=== PATIENT | male | born 1945 | race Caucasian/White ===

== ENCOUNTER → 2020-06-20 09:33 | Outpatient (BNVA) | payer MEDICARE, BC, SELFPAY | PROVIDERS: PCP Internal Medicine; Referring Provider Internal Medicine; Visit Provider Surgery | DX: C18.9 Malignant neoplasm of colon, unspecified (principal) | CPT/HCPCS: 99212 ==

== ENCOUNTER → 2020-10-31 13:27 | Outpatient (BNVA) | payer MEDICARE, BC, SELFPAY | PROVIDERS: PCP Internal Medicine; Visit Provider Urology | DX: R35.1 Nocturia (principal); N40.0 Benign prostatic hyperplasia without lower urinary tract symptoms | CPT/HCPCS: 51798; 81002; 99212 ==

== ENCOUNTER 2021-05-23 07:56 | Emergency (ER) | payer MEDICARE, BC, SELFPAY ==
--- NOTE | ~2021-05-23 | XR_ITS ---
EXAMINATION: XR HAND, LEFT CLINICAL INFORMATION: Left thumb laceration over distal phalanx COMPARISON: None TECHNIQUE: PA, lateral, and oblique views of the left hand. FINDINGS: No fracture or dislocation is seen. There is evidence of trauma to the soft tissues of the volar distal thumb. No soft tissue foreign body is seen. There is mild arthritis at the IP joints and first LONG-TERM joint. XR/XR hand LT 2V IMPRESSION: No fracture or dislocation seen. Evidence of trauma to the soft tissues over the volar distal thumb.
[2021-05-23 08:13] VITALS: BP 166/71; PULSE 86; RESP 18; TEMP 36.2; O2SAT 96; BMI 31.5
--- NOTE | 2021-05-23 09:27 | ED_ITS ---
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 Tetanus up-to-date. Denies injury to other area, numbness, tingling, weakness Related Data Home Medications Medication Instructions Recorded Confirmed aspirin 81 mg tablet,delayed 81 mg PO DAILY 06/20/20 06/20/20 release atorvastatin 10 mg tablet 10 mg PO DAILY 06/20/20 06/20/20 hydrochlorothiazide 25 mg tablet 25 mg PO DAILY 06/20/20 06/20/20 lisinopril 40 mg tablet mg PO 06/20/20 06/20/20 metformin 850 mg tablet 850 mg PO BID 06/20/20 06/20/20 omega-3 fatty acids-fish oil 360 1 cap PO BID 06/20/20 06/20/20 mg-1,200 mg capsule (Fish Oil) Previous Rx's Medication Instructions Recorded prednisone 20 mg tablet 60 mg PO DAILY #9 tab 03/21/21 bacitracin 500 unit/gram topical 1 appl TOPICAL BID #30 g 05/23/21 ointment cephalexin 500 mg capsule 500 mg PO QID 7 Days #28 cap 05/23/21 Allergies Allergy/AdvReac Type Severity Reaction Status Date / Time No Known Allergies Allergy Verified 03/21/21 15:39 [No Known Allergies*] Review of Systems Review of Systems: Constitutional: No Fever, No Chills ENT/Mouth: No Ear Pain, No Nasal Congestion, No sore throat, No Rhinorrhea, No Swallowing Difficulty Cardiovascular: No Chest Pain, No SOB Respiratory: No Cough Gastrointestinal: No Nausea, No Vomiting, No Abdominal pain Genitourinary:, No Dysuria, No Urgency, No Flank Pain Musculoskeletal: + joint pain, No Myalgias, No Joint Swelling Skin: + Skin Lesions, No rash Neuro: No Weakness, No Numbness, No Paresthesias Yes all other systems are reviewed and are negative [facility] Past Medical History Attestation statement: The following information was validated with the patient. Medical History (Updated 05/23/21 @ 10:13 by SONIDO Garrett) BPH (benign prostatic hyperplasia) Colon cancer Diabetes mellitus type 2 in nonobese Hypercholesterolemia Hypertension Surgical History History of colectomy (~10/24/04) History of colonoscopy History of excision of pilonidal cyst History of transurethral resection of prostate Family History Family History Father History of leukemia Mother History of emphysema Social History Social History Alcohol intake: never Advance Directives: No Physical Exam Vital Signs: Vital Signs: Last Vital Signs Temp 97.1 F 05/23/21 08:13 Pulse 86 05/23/21 08:13 Resp 18 05/23/21 08:13 BP 166/71 H 05/23/21 08:13 Pulse Ox 96 05/23/21 08:13 Body Mass Index 31.5 Const: General: cooperative, healthy appearing, alert and awake Orientation/consciousness: patient oriented x3 Limitations: no limitations HENMT: Head: Yes normal to inspection and Yes atraumatic Ears: hearing grossly normal bilaterally General nose exam: Normal external nose present Face and sinus: Yes normal facial exam Eyes: General: appearance normal, both eyes and all related structures EOM: EOMs intact bilaterally Neck: Neck: Yes normal visual inspection Resp: Effort & Inspection: normal respiratory effort and no respiratory distress Cardio: Rate: regular rate Peripheral pulses: radial pulses present Skin: Rashes: no rashes Neuro: General: patient oriented x3 Gait exam (Neuro): Normal gait present Extrem: Other: Please refer to image is above of left 1st digit, irregular deep avulsion/laceration, no nail involvement, neurovascular intact distally, full range of motion intact to digits, finger to thumb opposition intact, cap refill WNL, no visible bone Course Course Course Narrative: XR hand LT 2V IMPRESSION: No fracture or dislocation seen. Evidence of trauma to the soft tissues over the volar distal thumb. 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 On exam vital signs stable, NAD/nontoxic, physical exam as above, please refer to images. Concern for underlying fracture. Will closely approximate wound and have patient follow-up with orthopedics Medical Records Attestation: I reviewed the patient's medical records. Lab Data Attestation: I reviewed the patient's lab results. Procedures Laceration Laceration 1: Site: hand Side (If applicable): left (thumb) Size (cm): 3 Description: irregular Depth: involves muscle layer Local Anesthetic: lidocaine 1% (Digital block) Amount of anesthesia used (mL): 5 Pre-repair: wound explored and irrigated extensively Skin layer closed with: nylon Size (cm): 4-0 Number of sutures: 7 Discharge Plan Discharge Clinical Impression: Laceration, Avulsion of skin Patient Disposition: Home, Self-Care Instructions: Finger Laceration (ED), Skin Avulsion (ED) Additional Instructions: Please call the orthopedic hand specialist to make an appointment for next week. Keflex as an antibiotic, please take as prescribed Keep area dry and clean Need to have the sutures removed in 7-10 days If area begins look infected, is red, there is drainage, you have fever/chills please return to the ED Change dressing daily Apply bacitracin or Neosporin Prescriptions: New bacitracin 500 unit/gram ointment 1 appl topical BID Qty: 30 RF: 0 cephalexin 500 mg capsule 500 mg PO QID 7 Days Qty: 28 RF: 0 No Action prednisone 20 mg tablet 60 mg PO DAILY Qty: 9 RF: 0 lisinopril 40 mg tablet PO RF: 0 metformin 850 mg tablet 850 mg PO BID RF: 0 hydrochlorothiazide 25 mg tablet 25 mg PO DAILY RF: 0 atorvastatin 10 mg tablet 10 mg PO DAILY RF: 0 aspirin 81 mg tablet,delayed release (DR/EC) 81 mg PO DAILY RF: 0 omega-3 fatty acids-fish oil [Fish Oil] 360-1,200 mg capsule 1 cap PO BID RF: 0 Referrals: ED Physician,Generic [Physician] - 1 week (Return to any emergency department or urgent care in 7-10 days to have your stitches taken out) Natalie Smyth MD [Physician] - 5 days Interventions: ED Discharge Assessment Last Done: 05/23/21 10:36 Discharge Date/Time: 05/23/21 10:37
[2021-05-23] MEDS: Lidocaine HCl 1 % MPF 5 ML VIAL SUBCUT (09:31)
== END 2021-05-23 10:37 | disposition home or self-care (01) ==
PROVIDERS: Emergency Provider Emergency Medicine; PCP Internal Medicine
DX: S61.012A Laceration without foreign body of left thumb without damage to nail, initial encounter (principal); E11.9 Type 2 diabetes mellitus without complications; I10 Essential (primary) hypertension; W31.2XXA Contact with powered woodworking and forming machines, initial encounter; Y93.9 Activity, unspecified; Y92.9 Unspecified place or not applicable; Y99.9 Unspecified external cause status
CPT/HCPCS: 12002; 73120; 99283; 99284

== ENCOUNTER → 2021-05-30 08:59 | Outpatient (BNVA) | payer MEDICARE, BC, SELFPAY | PROVIDERS: Visit Provider Urology | DX: S61.012A Laceration without foreign body of left thumb without damage to nail, initial encounter (principal); N40.1 Benign prostatic hyperplasia with lower urinary tract symptoms; R35.1 Nocturia | CPT/HCPCS: 51798; 99202; 99212 ==

== ENCOUNTER → 2021-06-06 10:37 | Outpatient (BNVA) | payer MEDICARE, BC, SELFPAY | PROVIDERS: PCP Obstetrics & Gynecology; Visit Provider Physician Assistant | DX: S61.012D Laceration without foreign body of left thumb without damage to nail, subsequent encounter (principal) | CPT/HCPCS: 99212 ==

== ENCOUNTER → 2021-06-20 10:17 | Outpatient (BNVA) | payer MEDICARE, BC, SELFPAY | PROVIDERS: PCP Obstetrics & Gynecology; Visit Provider Physician Assistant | DX: T14.8XXD Other injury of unspecified body region, subsequent encounter (principal) | CPT/HCPCS: 99212 ==

== ENCOUNTER → 2021-06-21 14:49 | Outpatient (BNVA) | payer MEDICARE, BC, SELFPAY | PROVIDERS: PCP Obstetrics & Gynecology; Visit Provider Surgery | DX: C18.9 Malignant neoplasm of colon, unspecified (principal) | CPT/HCPCS: 99212 ==

== ENCOUNTER 2021-11-16 09:02 | Day surgery (SDC) | payer MEDICARE, BC, SELFPAY ==
[2021-11-12 15:56] VITALS: BMI 35.1
[2021-11-16 09:47] VITALS: BMI 32.3
[2021-11-16 10:07] VITALS: BP 150/77; PULSE 64; RESP 16; TEMP 36.8; O2SAT 97
[2021-11-16] MEDS: Lactated Ringers 1,000 ML 100 ML IVCONT (10:14)
--- NOTE | 2021-11-16 10:30 | P.CONAN_ITS ---
HPI - Anesthesia Eval Consult details Narrative: 76 yo male patient fo colonoscopy PMFSH Active Problems Active Problems: All Active Problems (Updated 05/24/21 @ 00:02 by Marcos Ivey) Lower thoracic back pain (Acute) Nocturia more than twice per night (Acute) Plant allergic contact dermatitis (Acute) BPH (benign prostatic hyperplasia) (Acute) Past Medical History Medical History BPH (benign prostatic hyperplasia) Colon cancer Diabetes mellitus type 2 in nonobese Hypercholesterolemia Hypertension Family History Family History Father History of leukemia Mother History of emphysema Family history of problems with anesthesia: No Surgical History Surgical History History of colectomy History of colonoscopy History of excision of pilonidal cyst History of placement of ear tubes History of transurethral resection of prostate History of Problems with Anesthesia: No Social History Social History Alcohol intake: never Patient Tobacco Use Status: Never used Tobacco Use of substances other than those prescribed or required for medical reasons: No Are you DNR?: Yes Advance Directives: No Advance Directives Information Provided: Yes Recently lost weight without trying: No How much weight loss: 2-13 pounds Nutrition Risks: No Nutritional Risk Current occupational status: retired Current occupation: rt handed Meds Allergies Allergy/AdvReac Type Severity Reaction Status Date / Time No Known Allergies Allergy Verified 11/12/21 15:53 [No Known Allergies*] Active Medications: Current Medications Sodium Biphosphate/Sodium Phosphate (Sodium Phosphate,Mccracken-Dibasic 133 Ml Enema) 133 ml UT ONCE PRN PRN Reason: Poor Colonoscopy Prep Results Home Medications Medication Instructions Recorded Confirmed Last Taken Type atorvastatin 10 mg tablet 10 mg PO DAILY 06/20/20 11/12/21 Unknown History hydrochlorothiazide 25 mg tablet 25 mg PO DAILY 06/20/20 11/12/21 Unknown History lisinopril 40 mg tablet 40 mg PO DAILY 06/20/20 11/12/21 11/16/21 History metformin 850 mg tablet 850 mg PO BID 06/20/20 11/12/21 Unknown History omega-3 fatty acids-fish oil 360 1 cap PO BID 06/20/20 11/12/21 Unknown History mg-1,200 mg capsule (Fish Oil) Exam Exam Date and Time: November 16, 2021 1030 Height,Weight and Vital Signs: Height 5 ft 10 in Weight 102.058 kg Last Vital Signs Temp 98.3 F 11/16/21 10:07 Pulse 64 11/16/21 10:07 Resp 16 11/16/21 10:07 BP 150/77 H 11/16/21 10:07 Pulse Ox 97 11/16/21 10:07 Pertinent Lab Results Pertinent Lab Results: Lab Results 11/16/21 Range/Units 10:35 POC Glucose 138 H (60-115) mg/dL Airway Mallampati Class: III TM Dist: >3cm Neck ROM: Full Denture: Upper Loose/Missing/Broken Teeth: No (2 caps bottom intact) Heart: RRR Lungs: CTAB Assessment and Plan Assessment Anesthesia Assessment: Anesthesia Plan Discussed and Chart Reviewed Final Anesthetic Review Family History of Problems with Anesthesia: No History of Problems with Anesthesia: No NPO: Yes ASA Class: II Final Preanesthetic Review: No Changes in Pt Med Stat, Meds/Allgs Chart Reviewed, Consent Obtained/Reviewed, Anes Risks/Benef Reviewed and DNR Form (If Appl.) Patient Risk: Low Procedure Risk: Low Assessment/Block/Sedation in SS: Assess/Block/Sedation-SS Anesthetic Plan Anesthetic Plan: MAC: Disposition: Standard PACU
[2021-11-16 10:39] LABS: Glucose, Whole Blood 138 mg/dL (60-115)
[2021-11-16 11:40] VITALS: BP 98/61; PULSE 57; RESP 20; TEMP 36.2; O2SAT 95
--- NOTE | 2021-11-16 11:42 | P.BOP_ITS ---
Brief Operative Note Date of Service: 11/16/21 Pre-op diagnosis: Screening Post-op diagnosis: other (Colon polyps) Procedure: Colonoscopy to the anastomosis and SI with hot snare polypectomy x 2 Surgeon: Gregory Murphy Anesthesia: MAC Was an Customs Entry Writer used for this Procedure?: No Estimated blood loss (mL): 0 Pathology: other (A. Polyp distal to the anastomosis B. Transverse colon polyp) Condition: stable Disposition: PACU
[2021-11-16 11:55] VITALS: BP 109/70; PULSE 56; RESP 20; TEMP 36.6; O2SAT 95
[2021-11-16 12:10] VITALS: BP 129/76; PULSE 56; RESP 18; TEMP 37.4; O2SAT 98
--- NOTE | 2021-11-16 23:47 | OP_ITS ---
SURGEON: Gregory Murphy MD INDICATIONS: The patient presents for followup of personal history of colon cancer and tubular adenomas of the colon. Full consent was obtained from him for this, including risks of bleeding and perforation. PREOPERATIVE DIAGNOSIS: POSTOPERATIVE DIAGNOSIS: PROCEDURE PERFORMED: Colonoscopy to the anastomosis and small bowel with hot snare polypectomy x 2. ESTIMATED BLOOD LOSS: COMPLICATIONS: ANESTHESIA: Monitored anesthesia care. ASSISTANTS: SPECIMENS: PREOPERATIVE DIAGNOSES: Colorectal cancer screening, personal history of tubular adenomas of the colon, and colorectal cancer screening. POSTOPERATIVE DIAGNOSES: Colorectal cancer screening, personal history of tubular adenomas of the colon, and colorectal cancer screening, colon polyps, diverticulosis, and internal hemorrhoids. DESCRIPTION OF PROCEDURE: The patient was placed in the left lateral decubitus position. The digital rectal exam revealed no abnormalities. The Olympus video pediatric colonoscope was entered into the rectum and advanced easily to the region of the anastomosis. This appeared normal. The small bowel was cannulated and appeared normal. The scope was withdrawn back in the colon. The entire anastomosis was well visualized and appeared normal. The scope was then slowly withdrawn assessing all mucosal surfaces carefully. Preparation was excellent. Just distal to the anastomosis was an approximately 1.2 cm polyp, which was removed by hot snare polypectomy. The polypectomy site appeared clean, without any sign of residual polyp nor bleeding. The polyp was retrieved on the tip of the scope and then withdrawn from the patient. The scope was then readvanced back to the polypectomy site, which appeared clean, without any sign of residual polyp nor bleeding. In the transverse colon was an approximately 6 mm polyp, which was removed by hot snare polypectomy and recovered by suction. The polypectomy site appeared clean, without any sign of residual polyp nor bleeding. I did not visualize any other polyps, colitis, nor angiodysplasia. There was [id number] amount of sigmoid diverticulosis. In the rectum, scope was retroflexed visualizing internal hemorrhoids, but no other pathology. The rectal mucosa appeared normal. Scope was straightened and withdrawn from the patient. He tolerated the procedure well and was returned to the recovery area in stable condition. IMPRESSION: 1. Colon polyps. 2. Diverticulosis. 3. Internal hemorrhoids. 4. Normal anastomosis. PLAN: The results of the pathology will be checked. He was advised not to use any aspirin or fish oil for 1 week. He was advised not to use any NSAIDs for 1 week. I would recommend a repeat colonoscopy in 3 years, although at that point, he would be in his early 80s and we would obviously need to take his clinical condition into account. MD HAI Carmona/ESTEE / [id number] MTDD
== END 2021-11-16 12:40 | disposition home or self-care (01) ==
PROVIDERS: PCP Internal Medicine; Visit Provider Internal Medicine
PROC: 0DJD8ZZ Inspection of Lower Intestinal Tract, Via Natural or Artificial Opening Endoscopic (ICD-10-PCS; CPT 45378; principal; 2021-11-16 10:00)
DX: Z12.11 Encounter for screening for malignant neoplasm of colon (principal); Z85.038 Personal history of other malignant neoplasm of large intestine; Z86.010 Personal history of colon polyps; Z83.71 Family history of colonic polyps; D12.3 Benign neoplasm of transverse colon; D12.0 Benign neoplasm of cecum; K57.30 Diverticulosis of large intestine without perforation or abscess without bleeding; K64.8 Other hemorrhoids; Z90.49 Acquired absence of other specified parts of digestive tract; I10 Essential (primary) hypertension; E78.00 Pure hypercholesterolemia, unspecified; N40.0 Benign prostatic hyperplasia without lower urinary tract symptoms; E11.9 Type 2 diabetes mellitus without complications; Z79.84 Long term (current) use of oral hypoglycemic drugs; Z79.899 Other long term (current) drug therapy
CPT/HCPCS: 45385; 82947; 88305

== ENCOUNTER → 2021-12-06 08:09 | Outpatient (BNVA) | payer MEDICARE, BC, SELFPAY | PROVIDERS: PCP Internal Medicine; Visit Provider Urology | DX: N40.0 Benign prostatic hyperplasia without lower urinary tract symptoms (principal); R35.1 Nocturia | CPT/HCPCS: 51798; 99212 ==

== ENCOUNTER → 2022-06-20 08:36 | Outpatient (BNVA) | payer MEDICARE, BC, SELFPAY | PROVIDERS: PCP Internal Medicine; Visit Provider Surgery | DX: C18.9 Malignant neoplasm of colon, unspecified (principal) | CPT/HCPCS: 99212 ==

== ENCOUNTER → 2022-12-06 08:30 | Outpatient (BNVA) | payer MEDICARE, BC, SELFPAY | PROVIDERS: PCP Internal Medicine; Visit Provider Urology | DX: N40.0 Benign prostatic hyperplasia without lower urinary tract symptoms (principal) | CPT/HCPCS: 51798; 99212 ==

== ENCOUNTER 2023-06-24 08:43 | Outpatient (AMB) | payer MEDICARE, BC, SELFPAY ==
--- NOTE | 2023-06-24 08:53 | MHC.OFFVIS ---
Intake Vital Signs 06/24/23 09:02 Height 5 ft 10 in Weight 223 lb 8 oz BMI 32.1 BP 138/64 Blood Pressure Location Lt brachial Position Sitting Pulse 79 Intake Visit Reasons: yearly visit malignant neoplasm of ascending colon Intake Note: Patient is seen in office for yearly visit, following malignant neoplasm of ascending colon. Patient c/o: denies any concerns or changes Price Accuracy Supervisor Required: No Accompanied by: Self / Same As Patient Allergies No Known Allergies [No Known Allergies*] Allergy (Verified 06/24/23 09:03) Medication List - Last Reconciled 06/24/23 by Mike Yancey MD atorvastatin 10 mg PO DAILY hydrochlorothiazide 25 mg PO DAILY ibuprofen 600 mg PO TID PRN lisinopril 40 mg PO DAILY metformin 850 mg PO BID omega-3 fatty acids-fish oil 360-1,200 mg (Fish Oil) 1 cap PO BID HPI HPI Comments History of Present Illness Details Mr. English returns for follow-up colon cancer examination. He previously underwent laparoscopic right colectomy [address] Gonzalez. 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 status post right colectomy laparoscopic on 10/24/2004.? His last colonoscopy performed by Dr. Murphy on 11/16/2021 revealed to benign polyps 1 just distal to the anastomosis and a 2nd in the transverse colon. Repeat colonoscopy in 3 years was recommended. He denies any current abdominal pain, nausea, vomiting, fever, chills, diarrhea, or rectal bleeding. His most recent CEA and PSA level performed [facility] remains normal. Denies any new symptoms. [facility] Medical History Colon cancer BPH (benign prostatic hyperplasia) Diabetes mellitus type 2 in nonobese Hypercholesterolemia Hypertension Surgical History History of placement of ear tubes History of colonoscopy History of colectomy History of transurethral resection of prostate History of excision of pilonidal cyst Family History Father History of leukemia Mother History of emphysema Social History Alcohol intake: never Patient Tobacco Use Status: Never used Tobacco Current occupational status: retired Current occupation: rt handed Review of Systems Const All systems reviewed & are unremarkable except as noted in HPI and below Denies chills, Denies fever(s), Denies headache(s) and Denies poor appetite ENT Denies dizziness and Denies headache(s) Card Denies chest pain, Denies rapid heart rate, Denies palpitations and Denies slow heart rate Resp Denies chest congestion, Denies cough, Denies pain on inspiration and Denies wheezing GI Denies abdominal pain, Denies bloating, Denies change in stool character, Denies constipation, Denies diarrhea, Denies nausea, Denies vomiting and Denies hematemesis Musc Denies back pain, Denies arthralgias, Denies joint swelling and Denies numbness Skin/Breast Denies change in pigmentation, Denies erythema and Denies rash Neuro Denies dizziness, Denies headache(s) and Denies numbness Psych Denies anxiety and Denies depression Endo Denies palpitations Chriss/Lymph Denies easy bleeding, Denies easy bruising and Denies lymphadenopathy Aller/Immun Denies wheezing Physical Exam Vital Signs: Last Vital Signs Pulse 79 06/24/23 09:02 BP 138/64 06/24/23 09:02 BMI result Body Mass Index 32.1 Const General: healthy appearing and well developed Nutritional Appearance: well nourished Orientation/consciousness: patient oriented x3 Limitations: no limitations HEENT Head: Yes normocephalic and Yes atraumatic Ears: hearing grossly normal bilaterally Resp Effort & Inspection: normal respiratory effort, no audible wheezes, no cough and no respiratory distress GI Inspection: Yes normal to inspection, No Abdominal wall edema, No distended and Yes incision (Clean and intact, no palpable mass) Palpation (GI): Soft to palpation, nontender, no guarding, not rigid and No hepatosplenomegaly present Percussion: Yes normal to percussion Rectal Exam - Male: Yes deferred Skin General skin exam: no rashes or lesions noted Neuro General: patient oriented x3 Extrem General: Yes no clubbing, cyanosis or edema Assessment & Plan Assessment & Plan (1) Colon cancer: Comment: Dr. Gonzalez: Laparoscopic right colectomy 10/24/2004 Code(s): C18.9 - Malignant neoplasm of colon, unspecified Qualifiers: Colon location: ascending Qualified Code(s): C18.2 - Malignant neoplasm of ascending colon Plan: Gregory returns for follow-up examination after right colon surgery 18 years ago. He continues to do well and has no evidence of recurrence disease. His abdomen is soft and nondistended with no palpable mass. He underwent colonoscopy in October [address] Murphy with finding of 2 benign polyps. He will possibly undergo a repeat colonoscopy in 3 years. CEA Levels remain normal. He will return in one year for follow-up examination, sooner p.r.n.. Coding Level of Care Code Est Pt Level 3 (80175) Diagnoses Malignant neoplasm of ascending colon C18.2 Colon location: ascending
[2023-06-24 09:02] VITALS: BP 138/64; PULSE 79; BMI 32.1
== END 2023-06-24 09:12 | disposition home or self-care (01) ==
PROVIDERS: Visit Provider Surgery
DX: Z85.038 Personal history of other malignant neoplasm of large intestine (principal); Z86.010 Personal history of colon polyps
CPT/HCPCS: 99213

== ENCOUNTER → 2023-06-24 08:43 | Outpatient (BNVA) | payer MEDICARE, BC, SELFPAY | PROVIDERS: Visit Provider Surgery | DX: C18.2 Malignant neoplasm of ascending colon (principal) | CPT/HCPCS: 99212 ==

== ENCOUNTER 2023-09-11 10:01 | Outpatient (AMB) | payer MEDICARE, BC, SELFPAY ==
[2023-09-11 10:47] VITALS: BP 140/68; PULSE 67; TEMP 36.4; O2SAT 97; BMI 32.7
--- NOTE | 2023-09-11 10:47 | MHC.OFFWIV ---
Intake Vital Signs 09/11/23 10:47 Height 5 ft 10 in Weight 228 lb BMI 32.7 BP 140/68 H Blood Pressure Location Lt brachial Position Sitting Pulse 67 Pulse Source Pulse Oximeter Temp 97.5 F Temp Source Temporal Artery Scan Pulse Oximetry (%) 97 Oxygen Delivery Method Room Air Intake Visit Reasons: EP Cough [phone] Intake Note: pt is here today for cough started 5 days ago Patient Tobacco Use Status: Never used Tobacco Allergies No Known Allergies [No Known Allergies*] Allergy (Verified 09/11/23 10:48) Do you need a note to return to daycare/school/sports/work: No HPI HPI Comments History of Present Illness Details 77 y/o male patient who presents to walk in clinic with c/o cough x 5 days. Reports cough is dry. Denies any fevers, chills, nausea or vomiting. Denies any recent sick contacts. [facility] Medical History Colon cancer BPH (benign prostatic hyperplasia) Diabetes mellitus type 2 in nonobese Hypercholesterolemia Hypertension Surgical History History of placement of ear tubes History of colonoscopy History of colectomy History of transurethral resection of prostate History of excision of pilonidal cyst Family History Father History of leukemia Mother History of emphysema Social History Alcohol intake: never Patient Tobacco Use Status: Never used Tobacco Current occupational status: retired Current occupation: rt handed Review of Systems Const All systems reviewed & are unremarkable except as noted in HPI and below Physical Exam Vital Signs: Last Vital Signs Temp 97.5 F 09/11/23 10:47 Pulse 67 09/11/23 10:47 BP 140/68 H 09/11/23 10:47 Pulse Ox 97 09/11/23 10:47 Oxygen Delivery Method Room Air 09/11/23 10:47 BMI result Body Mass Index 32.7 Const General: comfortable and no acute distress HEENT Head: Yes normocephalic Ears: external ears normal and TM abnormal with myringotomy tube present on the left General nose exam: Normal external nose present Face and sinus: Yes sinuses nontender Throat: Yes posterior oropharynx normal Resp Effort & Inspection: normal respiratory effort and able to speak in complete sentences Auscultation: clear to auscultation bilaterally Cardio Rate: regular rate Rhythm: regular rhythm Assessment & Plan Assessment & Plan (1) Cough in adult: Code(s): R05.9 - Cough, unspecified Plan: - OTC cough/cold remedies - Acetaminophen for pain relief. Medications: New dextromethorphan polistirex ER (Robitussin ER) 10 mL PO Q12H 89 mL 0RF R05.9 - Cough, unspecified benzonatate 100 mg PO TID 30 caps 0RF R05.9 - Cough, unspecified Coding Level of Care Code Est Pt Level 3 (02074) Diagnoses Cough in adult R05.9 Time Spent (min) 15
== END 2023-09-11 11:50 | disposition home or self-care (01) ==
PROVIDERS: PCP Internal Medicine; Visit Provider Nurse Practitioner Family
DX: R05.9 Cough, unspecified (principal)
CPT/HCPCS: 99213

== ENCOUNTER 2024-06-29 08:43 | Outpatient (AMB) | payer MEDICARE, BC, SELFPAY ==
--- NOTE | 2024-06-29 09:01 | A.OFFVIS_ITS ---
Vital Signs 06/29/24 09:10 Height 5 ft 10 in Weight 221 lb BMI 31.7 BP 135/63 Blood Pressure Location Rt brachial Position Sitting Pulse 73 Intake Visit Reasons: yearly malignant neoplasm colon follow up Intake Note: Patient is seen in office for yearly visit, following malignant neoplasm of ascending colon. Patient c/o: does not have any concerns Colonoscopy Due: 10/2024 (3 yrs recall) Hoop Maker Required: No Accompanied by: Self / Same As Patient Allergies No Known Allergies [No Known Allergies*] Allergy (Verified 06/29/24 09:09) Medication List - Last Reconciled 06/29/24 by Mike Yancey MD atorvastatin 10 mg PO DAILY benzonatate 100 mg PO TID dextromethorphan polistirex ER (Robitussin ER) 10 mL PO Q12H hydrochlorothiazide 25 mg PO DAILY ibuprofen 600 mg PO TID PRN lisinopril 40 mg PO DAILY metformin 1,000 mg PO BID omega-3 fatty acids-fish oil 360-1,200 mg (Fish Oil) 1 cap PO BID HPI Comments Details: Mr. Enlgish returns for follow-up colon cancer examination. He previously underwent laparoscopic right colectomy [address] Gonzalez. 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 status post right colectomy laparoscopic on 10/24/2004.? His last colonoscopy performed by Dr. Murphy on 11/16/2021 revealed to benign polyps 1 just distal to the anastomosis and a 2nd in the transverse colon. Repeat colonoscopy in 3 years was recommended. He denies any current abdominal pain, nausea, vomi ting, fever, chills, diarrhea, or rectal bleeding. His most recent CEA performed [facility] remains normal with CEA level is 1.72 (normal 0-5). Denies any new symptoms. He is planning a trip with his family to [place] in September 2024 [facility] Medical History Colon cancer BPH (benign prostatic hyperplasia) Diabetes mellitus type 2 in nonobese Hypercholesterolemia Hypertension Surgical History History of placement of ear tubes History of colonoscopy History of colectomy History of transurethral resection of prostate History of excision of pilonidal cyst Family History Father History of leukemia Mother History of emphysema Social History Alcohol intake: never Patient Tobacco Use Status: Never used Tobacco Current occupational status: retired Current occupation: rt handed Review of Systems Const All systems reviewed & are unremarkable except as noted in HPI and below Denies chills, Denies fever(s), Denies headache(s) and Denies poor appetite ENT Denies dizziness and Denies headache(s) Card Denies chest pain, Denies rapid heart rate, Denies palpitations and Denies slow heart rate Resp Denies chest congestion, Denies cough, Denies pain on inspiration and Denies wheezing GI Denies abdominal pain, Denies bloating, Denies change in stool character, Denies constipation, Denies diarrhea, Denies nausea, Denies vomiting and Denies hematemesis Musc Denies back pain, Denies arthralgias, Denies joint swelling and Denies numbness Skin/Breast Denies change in pigmentation, Denies erythema and Denies rash Neuro Denies dizziness, Denies headache(s) and Denies numbness Psych Denies anxiety and Denies depression Endo Denies palpitations Chriss/Lymph Denies easy bleeding, Denies easy bruising and Denies lymphadenopathy Aller/Immun Denies wheezing Physical Exam Vital Signs: Last Vital Signs Pulse 73 06/29/24 09:10 BP 135/63 06/29/24 09:10 BMI result Body Mass Index 31.7 Const General: healthy appearing and well developed Nutritional Appearance: well nourished Orientation/consciousness: patient oriented x3 Limitations: no limitations HEENT Head: Yes normocephalic and Yes atraumatic Ears: hearing grossly normal bilaterally Resp Effort & Inspection: normal respiratory effort, no audible wheezes, no cough and no respiratory distress GI Inspection: Yes normal to inspection, No Abdominal wall edema, No distended and Yes incision (Clean and intact, no palpable mass) Palpation (GI): Soft to palpation, nontender, no guarding, not rigid and No hepatosplenomegaly present Percussion: Yes normal to percussion Auscultation: normal bowel sounds Rectal Exam - Male: Yes deferred Skin General skin exam: no rashes or lesions noted Neuro General: patient oriented x3 Extrem General: Yes no clubbing, cyanosis or edema Assessment & Plan Assessment & Plan (1) Colon cancer: Comment: Dr. Gonzalez: Laparoscopic right colectomy 10/24/2004 Code(s): C18.9 - Malignant neoplasm of colon, unspecified Category: Medical Qualifiers: Colon location: ascending Qualified Code(s): C18.2 - Malignant neoplasm of ascending colon Plan: Gregory returns for follow-up examination after right colon surgery 18 years ago. He continues to do well and has no evidence of recurrence disease. His abdomen is soft and nondistended with no palpable mass. He underwent colonoscopy in October [address] Murphy with finding of 2 benign polyps. He will possibly undergo a repeat colonoscopy in 3 years. CEA Levels remain normal. He will return in one year for follow-up examination, sooner p.r.n.. Coding Level of Care Code Est Pt Level 3 (54361) Diagnoses Malignant neoplasm of ascending colon C18.2 Colon location: ascending
[2024-06-29 09:10] VITALS: BP 135/63; PULSE 73; BMI 31.7
== END 2024-06-29 09:23 | disposition home or self-care (01) ==
PROVIDERS: PCP Internal Medicine; Visit Provider Surgery
DX: C18.2 Malignant neoplasm of ascending colon (principal)
CPT/HCPCS: 99213

== ENCOUNTER → 2024-06-29 08:43 | Outpatient (BNVA) | payer MEDICARE, BC, SELFPAY | PROVIDERS: PCP Internal Medicine; Visit Provider Surgery | DX: C18.2 Malignant neoplasm of ascending colon (principal) | CPT/HCPCS: 99212 ==

== ENCOUNTER 2024-09-25 09:15 | Outpatient (AMB) | payer MEDICARE, BC, SELFPAY ==
--- OUTSIDE RECORDS SUMMARY | 2024-09-25 09:17 | XMS_ITS | Data Portability ---
Author Organization [place] - [facility], Allergy Address [address] [address] Care Team Providers Care Civil Project Engineer Name Role Phone NEHA SUERO Primary Care Provider Assessment Encounter Date Assessment Date Assessment LastModified by Organization Details LastModified Time 01/27/2024 01/27/2024 78-year-old male presents for cerumen removal. Cerumen removed bilaterally. T-tube remains in place and patent on the left. Persistent perforation on the right which is dry. Continue dry ear precautions and follow-up in 6 months for cerumen. [email or web address] Not available 01/27/2024 11:58:15 04/13/2024 04/13/2024 Recommendations: Follow up with referring provider. [email or web address] Not available 04/13/2024 08:40:49 04/13/2024 04/13/2024 The right tympanic membrane continues to show a small, tube sized perforation the anterior superior quadrant, no signs of otorrhea. The left external auditory canal free of inflammation or infection with patient T-tube in place. Audiometric testing was carried out today and compared to his last audiogram in 2020. This showed slight worsening in the hearing in the right ear as compared to his previous audiogram, but overall not enough to warrant amplification. Discussed some communication strategies that he can speak with his about regarding better communication at home. He should continue to maintain dry ear precautions permanently in the right ear, but water precautions are not needed for the left ear. At this point I have no plans to do anything about the small perforation on the right as it is probably more therapeutic than pathologic at this point. Follow-up in three months for ear cleaning as he does rapidly accumulated cerumen. He will see a PA for the three month visit and follow-up with me in six months. [email or web address] Not available 04/13/2024 09:00:45 07/30/2024 07/30/2024 78-year-old male presents for cerumen removal. Cerumen removed bilaterally. T-tube remains in place and patent on the left. Persistent perforation on the right which is dry. Continue dry ear precautions and follow-up in 6 months for cerumen. [email or web address] Not available 07/30/2024 09:20:21 Plan of Treatment Reminders Order Date Submit Date Provider Last Modified By Organization Details Last Modified Time Details Appointments Establish ed 15 2024 08:45A M ABBEY WINTERS MD Not available Not available Not available Establish ed 15 2024 09:00A M JIMMY FIGUEROA PA-C Not available Not available Not available Lab None recorded. Referral None recorded. Procedures None recorded. Surgeries None recorded. Imaging None recorded. Medication Orders None recorded. Patient TargetsNo targets recorded. Patient InstructionsNo instructions recorded. Reason for Referral None Reported. Results Created Date Observation Date Name Description Value Unit Range Abnormal Flag Note LastModifiedBy Organization Detail LastModifiedTime 03/10/20 24 08/04/2020 imagi ng/di agnos tic resul t No observ ation record ed. [email or web address] Not Available 21:16:55 03/10/2009/27/2020 imagi ng/di agnos tic resul t No observ ation record ed. [email or web address] Not Available 21:17:12 03/10/20 24 08/04/2020 audio gram No observ ation record ed. [email or web address] Not Available 21:18:20 03/10/20 24 09/27/2020 audio gram No observ ation record ed. [email or web address] Not Available 21:19:33 04/13/20 audio gram No observ ation record ed. [email or web address] Not Available 11:26:07 Result Notes None recorded. Problems Name Problem SNOMED Code Status Onset Date Resolution Date Notes Provider Name and Address Organization Details Recorded Time Impacted cerumen of bilatera l ears 83892293641 68980 Active 2023 JIMMY FIGUEROA PA-C [address], [place], [place], [address] , [place] - [facility] 4 11:58:29 Bilatera l disorder of Eustachi an tubes 74798993773 04368 Active 2023 JIMMY FIGUEROA PA-C [address], [place], [place], [address] , [place] - [facility] 4 11:58:33 Perforat ion of tympanic membrane 78881480 Active 2023 JIMMY FIGUEROA PA-C [address], [place], [place], [address] , [facility] - [facility] 4 11:59:00 Mixed conducti ve and sensorin eural hearing loss of right ear 15672512676 105 Active 2020 Mixed conducti ve and sensorin eural hearing loss, unilater al, right ear with restrict ed hearing on the contrala teral side; Note: Date Diagnose d: 1 10:09 AM (H90.A31 ) Not Available [facility] [place] 4 02:41:59 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 Other specifie d superfic ial mycoses; Note: Date Diagnose d: 2 9:04 AM (B36.8) Not Available [facility] 4 02:41:59 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 50274450834 109 Active 2020 Sensorin eural hearing loss, unilater al, left ear, with restrict ed hearing on the contrala teral side; Note: Date Diagnose d: 1 10:09 AM (H90.A22 ) Not Available [facility] [place] 4 02:42:00 Bilatera l chronic serous otitis 624491395 Completed 201602/20/2024 Chronic serous otitis media, bilatera l; Note: Date Diagnose d: 05/08/20 17 8:59 AM (H65.23) Not Available [facility] 4 02:42:02 Otorrhea of left ear 29131423890 91906 Completed 202102/20/2024 Otorrhea , left ear; Note: Date Diagnose d: 2 9:04 AM (H92.12) Not Available [facility] 4 02:42:03 Impacted cerumen in left ear 81868987225 32519 Active 2016 Impacted cerumen, left ear; Note: Date Diagnose d: 7 4:32 PM (H61.22) Not Available [facility] [place] 4 02:42:03 Impacted cerumen in right ear 10025100064 37899 Active 2017 Impacted cerumen, right ear; Note: Date Diagnose d: 8 8:52 AM (H61.21) Not Available [facility] 4 02:42:04 Sensorin eural hearing loss of bilatera l ears 860484242 Active 2020 Sensorin eural hearing loss, bilatera l; Note: Date Diagnose d: 1 2:59 PM (H90.3) Not Available [facility] 4 02:42:06 Marginal perforat ion of tympanic membrane 85672416 Active 2021 Other marginal perforat ions of tympanic membrane , right ear; Note: Date Diagnose d: 2 8:54 AM (H72.2X1 ) Not Available [facility] 4 02:42:08 Mass of neck 817920107 Active 2016 Localize d swelling , mass and lump, neck; Note: Date Diagnose d: 06/04/20 17 10:03 AM (R22.1) Not Available [facility] [place] 4 02:42:08 Neck swelling 266736176 Active 2016 Localize d swelling , mass and lump, neck; Note: Date Diagnose d: 06/04/20 17 10:03 AM (R22.1) Not Available [facility] [place] 4 02:42:08 Mixed conducti ve and sensorin eural hearing loss, bilatera l 293659394 Active 2016 Mixed conducti ve and sensorin eural hearing loss, bilatera l; Note: Date Diagnose d: 7 4:16 PM (H90.6) Not Available [facility] 4 02:42:09 Chronic serous otitis media of left ear 696737553 Active 2017 Chronic serous otitis media, left ear; Note: Date Diagnose d: 8 9:03 AM (H65.22) Not Available [facility] 4 02:42:10 Chronic serous otitis media of right ear 604081585 Active 2020 Chronic serous otitis media, right ear; Note: Date Diagnose d: 08/22/2020 9:08 AM (H65.21) Not Available [facility] 4 02:42:10 Problem Notes None recorded. Procedures Surgical History Date Name Laterality Status Provider Name and Address Organization Details Recorded Time 5 Cerumen removal without microscope bilat completed JIMMY FIGUEROA PA-C [address] [place] [address], [phone], [facility] - [facility] 07/30/2024 09:19:48 4 Comp Audio with Tymps (69960 & 60080) completed RICKI CAVAZOS [address] [place] [address], [address], [facility] - [facility] 04/13/2024 08:41:06 4 Cerumen removal with microscope bilateral completed ABBEY WINTERS MD [address] [place] [address], [phone], [facility] - [facility] 04/13/2024 08:28:55 4 Cerumen removal without microscope bilat completed JIMMY FIGUEROA PA-C [address] [place] [address], [address], [facility] - [facility] 01/27/2024 11:57:55 Imaging Results Imaging Date Name Status LastModified by [facility] Details LastModified Time 08/04/2020 imaging/diagno stic result completed Information not available 03/10/2024 21:16:55 09/27/2020 imaging/diagno stic result completed Information not available 03/10/2024 21:17:12 08/04/2020 audiogram completed Information not available 03/10/2024 21:18:20 09/27/2020 audiogram completed Information not available 03/10/2024 21:19:33 04/13/2024 audiogram completed [facility] Information not available 04/13/2024 11:26:07 Procedure Notes None recorded. Medical Equipment None Reported. Medications Name Sig Start Date Stop Date Status Note LastModified by Organization Details LastModified Time celecoxib 200 mg capsule 08/02 completed Medicati on ID: [id number] D uration Value: 90 Brand Name: celecoxi b Send Method: E-Prescr ibed Sub s Allowed: subs OK Medic ationGen ericName : celecoxi b Not Available Not Available Not Available metformin 500 mg tablet 04/24 completed Medicati on ID: [id number] B rand Name: metformi n Send Method: E-Prescr ibed Sub s Allowed: subs OK Medic ationGen ericName : metformi n Not Available Not Available Not Available atorvasta tin 10 mg tablet active Not Available Not Available Not Available metformin 850 mg tablet 04/13 completed Not Available Not Available Not Available metronida zole 500 mg tablet 08/02 completed Medicati on ID: [id number] D uration Value: 7 Brand Name: metronid azole Se nd Method: E-Prescr ibed Sub s Allowed: subs OK Medic ationGen ericName : metronid azole Not Available Not Available Not Available Ciloxan 0.3 % eye drops 04/13 completed Medicati on ID: [id number] D uration Value: 14 Prescri bed By Name: TUCKER [place] nd Name: Ciloxan Send Method: E-Prescr ibed Sub s Allowed: subs OK Speci al Instruct ion: Instill 4 drops twice a day into the affected ear Medi cationGe nericNam e: Ciloxan Not Available Not Available Not Available ciproflox acin 500 mg tablet 11/05 completed Medicati on ID: [id number] D uration Value: 7 Brand Name: ciproflo xacin HCl Send Method: E-Prescr ibed Sub s Allowed: subs OK Medic ationGen ericName : ciproflo xacin HCl Not Available Not Available Not Available ofloxacin 0.3 % ear drops 4 drop 04/24 completed Medicati on ID: [id number] P rescribe d By Name: Quita Pinon nd Name: ofloxaci n Send Method: E-Prescr ibed Sub s Allowed: subs OK Medic ationGen ericName : ofloxaci n Not Available Not Available Not Available tamsulosi n 0.4 mg capsule 2021 active Medicati on ID: [id number] B rand Name: tamsulos in Send Method: E-Prescr ibed Sub s Allowed: subs OK Medic ationGen ericName : tamsulos in Not Available Not Available Not Available metformin 1,000 mg tablet active Not Available Not Available Not Available clotrimaz ole-betam ethasone 1 %-0.05 % topical cream Apply 1 a small amount twice a day 04/13 completed Medicati on ID: [id number] D uration Value: 14 Brand Name: clotrima zole-bet amethaso ne Send Method: E-Prescr ibed Sub s Allowed: subs OK Speci al Instruct ion: Apply with fingerti p to external ear TID X 2 week and as needed M edicatio nGeneric Name: clotrima zole-bet amethaso ne Not Available Not Available Not Available clotrimaz ole 1 % topical solution 08/06 completed Medicati on ID: [id number] D uration Value: 14 Prescri bed By Name: Quita Pinon nd Name: clotrima zolzohaib Crocker d Method: E-Prescr ibed Sub s Allowed: subs OK Speci al Instruct ion: 4 drops to affected ear three times a day X 14 days Med icationG enericNa me: clotrima zole Not Available Not Available Not Available hydrochlo rothiazid e 25 mg tablet active Not Available Not Available Not Available Aspir-81 mg tablet,de layed release 04/13 completed Medicati on ID: [id number] B rand Name: Aspir-81 Send Method: E-Prescr ibed Sub s Allowed: subs OK Medic ationGen ericName : Aspir-81 Not Available Not Available Not Available ibuprofen 600 mg tablet active Not Available Not Available Not Available lisinopri l 40 mg tablet active Not Available Not Available Not Available Ciprodex 0.3 %-0.1 % ear drops,carlos pension Instill 4 drop twice a day as directed 04/13 completed Medicati on ID: [id number] D uration Value: 14 Brand Name: Ciprodex Send Method: E-Prescr ibed Sub s Allowed: subs OK Speci al Instruct ion: x 14 days Med icationG enericNa me: Ciprodex Not Available Not Available Not Available fish oil-dha-e pa 1,200 mg-144 mg-216 mg capsule 2016 active Medicati on ID: [id number] B rand Name: fish oil-dha- epa Send Method: E-Prescr ibed Sub s Allowed: subs OK Medic ationGen ericName : fish oil-dha- epa Not Available Not Available Not Available Gemtesa 75 mg tablet active Not Available Not Available Not Available Vitals Date Recorded Body height Body mass index (BMI) Body weight Provider Name and Address Organization Details Last Updated DateTime 01/27/2024 177.8 cm 30.8 kg/m2 61610.36 g Citlaly Crawley [place] [facility] 01/27/2024 11:07:41 Date Recorded Body height Body weight Provider Name and Address Organization Details Last Updated DateTime 04/13/2024 177.8 cm 28433.36 g Adina Zepeda [place] [facility] 04/13/2024 08:16:29 Date Recorded Body height Body mass index (BMI) Body weight Provider Name and Address Organization Details Last Updated DateTime 07/30/2024 177.8 cm 30.8 kg/m2 92081.36 g Gillian Denis [place] [facility] 07/30/2024 08:50:05 Social History None recorded. Functional Status None recorded. Mental Status None recorded. Family History Nothing Reported. Medical History Condition Response Diabetes Y Cancer Y Hypertension Y High Cholesterol Y Past Encounters Encounter ID Performer Location Encounter Start Date Encounter Closed Date Diagnosis/Indication Diagnosis SNOMED-CT Code Diagnosis ICD10 Code Diagnosis Note [id number] ABBEY WINTERS MD [facility] [address] [place] [place] [address] 01/27/2024 11:00:59 01/27/2024 11:26:38 Perforation of tympanic membrane 88537968 H72.01 Impacted c erumen of bilateral ears 7244067716 955123 H61.23 Bilateral disorder of Eustachian tubes 2791615926 256813 H69.93 [id number] ABBEY WINTERS MD [facility] [address] [place] [address] 04/13/2024 08:11:43 04/13/2024 09:02:17 Bilateral disorder of Eustachian tubes 1134256816 615423 H69.93 Perforatio n of tympanic membrane 49821064 H72.01 Impacted c erumen of bilateral ears 4684489601 932508 H61.23 Sensorineu ral hearing loss of bilateral ears 271109442 H90.3 Audiologic al evaluation results:Ri ght ear:{{Norm al sloping Mi ld* Modera te Moderat david-severe Severe Pr ofound Nor mal auditory thresholds }} to {{mild mod erate mode rately-sev ere* sever e profound with}} {{sensorin eural hearing loss with* cond uctive hearing loss with mixed hearing loss with}} {{excellen t* good fa ir poor no t measurable }} word recognitio n. Conductive componenet at 4kHz only.Left ear:{{Norm al sloping* M ild Modera te Moderat david-severe Severe Pr ofound Nor mal auditory thresholds }} to {{mild mod erate mode rately-sev ere* sever e profound with}} {{sensorin eural hearing loss with* cond uctive hearing loss with mixed hearing loss with}} {{excellen t* good fa ir poor no t measurable }} word recognitio n.Tympanom etry:Right Ear:{{Type A* Type As Type Ad Type C Type C, shallow & rounded Ty pe B Type B with large volume Cou ld not maintain a hermetic seal}}Left Ear:{{Type A Type As Type Ad* Type C Type C, shallow & rounded Ty pe B Type B with large volume Cou ld not maintain a hermetic seal}} [id number] RICKI CAVAZOS [facility] [address] [address] 04/13/2024 08:40:31 04/14/2024 07:37:33 Sensorineural hearing loss of bilateral ears 658613945 H90.3 [facility]Norm al sloping Mi ld* Modera te Moderat david-severe Severe Pr ofound Nor mal auditory thresholds }} to {{mild mod erate mode rately-sev ere* sever e profound with}} {{sensorin eural hearing loss with* cond uctive hearing loss with mixed hearing loss with}} {{excellen t* good fa ir poor no t measurable }} word recognitio n. Conductive componenet at 4kHz only.Left ear:{{Norm al sloping* M ild Modera te Moderat david-severe Severe Pr ofound Nor mal auditory thresholds }} to {{mild mod erate mode rately-sev ere* sever e profound with}} {{sensorin eural hearing loss with* cond uctive hearing loss with mixed hearing loss with}} {{excellen t* good fa ir poor no t measurable }} word recognitio n.Tympanom etry:Right Ear:{{Type A* Type As Type Ad Type C Type C, shallow & rounded Ty pe B Type B with large volume Cou ld not maintain a hermetic seal}}Left Ear:{{Type A Type As Type Ad* Type C Type C, shallow & rounded Ty pe B Type B with large volume Cou ld not maintain a hermetic seal}} [id number] DEVENDRA HENNESSY MD [facility] [address] [address] 07/30/2024 08:34:03 07/30/2024 09:15:39 Bilateral disorder of Eustachian tubes 2708097775 563665 H69.93 Impacted c erumen of bilateral ears 7813185876 943924 H61.23 Health Concerns Section Related Observation LastModified by Organization Detai ls LastModified Time None Recorded Concern Status LastModified by Organization Details LastModified Time None Recorded Advance Directives Directive None Recorded Payers Encounter Date Sequence Insurance Name Policy Number Policy Marin Covered Member ID Marin Member ID Guarantor Name 01/27/2024 1 [place]ARE [place]: [facility] Gregory English [id number] Gregory [employer] [facility] 01/27/2024 2 [place] [employer] 111 Gregory English [id number] Gregory [facility] 04/13/2024 1 [place] [facility] Gregory Downeyuin [id number] [facility] 04/13/2024 2 [place] 111 Gregory English [id number] Gregory [facility] 04/13/2024 1 [place] [facility] Gregory English [id number] [facility] 04/13/2024 2 [place] 111 Gregory English [id number] Gregory [facility] 07/30/2024 1 [place] [facility] Gregory Enlgish [id number] Gregory [facility] 07/30/2024 2 [place] [employer] 111 Gregory English [id number] Gregory English Notes Date Note Type Note Provider Name and Address Organization Details Recorded Time 01/27/2024 text/html 78-year-old male presents for cerumen removal. No acute issues since his last visit. History of chronic right TM perforation following T-tube. ABBEY WINTERS MD [address] [place] [address], [phone], [facility] 01/27/2024 14:00:50 04/13/2024 text/html 78-year-old male presents for cerumen removal. History of chronic ETD s/p BMT x 2 now statuspost bilateral dilation of the eustachian tubes and right M&T on 08/30/20. The right tube had extruded leaving a small residual perforation in the drum. He is noted no pressure or blockage sensation in the right ear since his last visit. He still has a T-tube in the left ear. No recent pain or discharge. He is due for updated audiometric testing today. He notes that the hearing in the right ear seems worse than the left recently. ABBEY WINTERS MD [address] [facility],[address], [address], [facility] - [facility] 04/13/2024 09:01:14 04/13/2024 text/html Audiological Evaluation HPIReported bypatient.Hearing loss perceived:hearing loss in both ears: right ear worse Onset:gradual RICKI CAVAZOS [address] [facility],[place] [address], [place], [address], [facility] - [facility] 04/13/2024 08:46:32 07/30/2024 text/html 78-year-old male presents for cerumen removal. No acute issues since his last visit. History of chronic right TM perforation following T-tube. DEVENDRA WOOD MD [address] [facility],[place] [address], [place], [address], [facility] - [facility] 07/30/2024 13:01:11
--- OUTSIDE RECORDS SUMMARY | 2024-09-25 09:17 | XMS_ITS | Patient Health Record ---
Author Organization [facility] Address [address] [place] [address] Care Team Providers Care Insight Director Name Role Phone Soren MONTANO, Oniel Primary Care Provider Unavailab Will Drake Unavailable [phone] Allergies No Known Allergies Reason For Referral No Information Medications Medication SIG (Take, Route, Frequency, Duration) Notes Start Date End Date Status Fish Oil 1200 MG 1 capsule Orally Onc e a day Active metFORMIN HCl 850 MG 1 tablet with a chris l Orally Twice a day Active hydroCHLOROthiazide 25 MG 1 tablet Orall y Once a day Active Atorvastatin Calcium 10 MG 1 tablet Oral ly Once a day Active Lisinopril 40 MG 1 tablet Orally twic e a day Active Immunizations Vaccine Route Administration Date Status Comme nts Flu vaccine no Preserv 3 and > Unknown 04/13/2014 Admin istered Influenza Unknown 05/26/2018 Administered Influenza Unknown 03/22/2021 Administered Problems Problem Type SNOMED Code ICD Code Onset Dates Problem Status W/U Status Risk Notes Problem 9657878 Diverticulitis o f large intestine without perforation or abscess without bleeding (K57.32) Active confirmed Problem 151946651 Encounter for screening for malignant neoplasm of colon (Z12.11) Active confirmed Problem 873478515 History of adenomatous polyp of colon (Z86.010) Active confirmed Problem History of malignant neoplasm of colon (685603869) History of colon cancer (Z85.038) Active confirmed Problem 203143616 Personal history of colon cancer (Z85.038) Active confirmed Problem Diverticulosis of colon (503169018) Diverticulosis of colon (K57.30) Active confirmed Problem History of gastrointestinal tract bypass (375122518) Hx of Billroth II operation (Z98.0) Active confirmed Plan Of Treatment Pending Test Test Name Order Date Pathology 11/16/2021 Future Test Test Name Order Date COLONOSCOPY 12/27/2014 COLONOSCOPY 05/26/2018 COLONOSCOPY 10/12/2021 Insurance Providers Payer Name Payer Address Payer Phone Subscriber Number Group Number Insured Name Patient Relationship to Insured Coverage Start Date Coverage End Date MEDICARE OF [place] [address] [place] [address] [phone] [id number] WILL ENGLISH Self - patient is the insured [facility] [address] [place], [place] [id number] AFR[place] WILL Self - patient is the insured Medical (General) History Medical History History ICD Code Hx of colon cancer-10/2004-right colectom y by Dr. Gonzalez Colon polyps-tubular adenoma s-colonoscopy in December of 2011--this was negative for any recurrent polyps--it did reveal his known diverticulosis and internal hemorrhoids; colonoscopy in February of 2015-one small tubular adenoma removed HTN NIDDM Hyperlipidemia Denies LA,CVA,Lung disease,renal disease Diverticulitis in the left c olon in 11/2014--treated with outpt antibiotics--he has had other episodes of diverticulitis including 2 in 2018, most recently as of February 2018--is followed by Dr. Yancey as well Tubes in ears- Dr. Marie Negative colonoscopy in 06/2018 Surgical History Surgery Date(Month/Year) Colon cancer surgery--right colectomy 20 05 Pilonidal cyst X 3 Prostate surgeries Ear tubes
[2024-09-25 09:25] VITALS: BP 150/82; PULSE 66; TEMP 36.7; O2SAT 96; BMI 30.4
--- NOTE | 2024-09-25 09:25 | AM.OFFWIN_ITS ---
Intake Vital Signs 09/25/24 09:25 Height 5 ft 10 in Weight 212 lb BMI 30.4 BP 150/82 H Blood Pressure Location Lt brachial Position Sitting Pulse 66 Pulse Source Pulse Oximeter Temp 98.1 F Temp Source Oral Pulse Oximetry (%) 96 Oxygen Delivery Method Room Air Intake Visit Reasons: EP-Cough Patient Tobacco Use Status: Never used Tobacco Allergies No Known Allergies [No Known Allergies*] Allergy (Verified 09/25/24 09:25) HPI HPI Comments History of Present Illness Details This is an 78-year-old male who presented to the walk-in clinic today requesting ?clearance? as he is traveling soon with his family. Patient states he developed a cough about 3 weeks ago. He states this cough was productive of occasionally clear and occasionally green-yellow sputum. He states it was not associated with any other symptoms such as nasal congestion, rhinorrhea, fevers, chills, or shortness of breath. He started taking vblz-bxv-vtvlvuo dextrometho rphan for the past 10 days and he states that this has significantly helped his cough. He states his cough is essentially resolved at this time. He continues to deny any other symptoms such as congestion, rhinorrhea, fevers, chills, shortness of breath, chest pain, abdominal pain, nausea/vomiting/diarrhea, or ear pain. FOR[facility]LY [facility] Medical History Colon cancer BPH (benign prostatic hyperplasia) Diabetes mellitus type 2 in nonobese Hypercholesterolemia Hypertension Surgical History History of placement of ear tubes History of colonoscopy History of colectomy History of transurethral resection of prostate History of excision of pilonidal cyst Family History Father History of leukemia Mother History of emphysema Social History Alcohol intake: never Patient Tobacco Use Status: Never used Tobacco Current occupational status: retired Current occupation: rt handed Review of Systems Const All systems reviewed & are unremarkable except as noted in HPI and below Reports no additional complaints Eyes Reports no additional complaints ENT Reports no additional complaints Card Reports no additional complaints Resp Reports no additional complaints GI Reports no additional complaints Reports no additional complaints Musc Reports no additional complaints Skin/Breast Reports system reviewed and no additional complaints, except as documented Neuro Reports no additional complaints Psych Reports no additional complaints Endo Reports no additional complaints Chriss/Lymph Reports no additional complaints Aller/Immun Reports no additional complaints Physical Exam Vital Signs: Last Vital Signs Temp 98.1 F 09/25/24 09:25 Pulse 66 09/25/24 09:25 BP 150/82 H 09/25/24 09:25 Pulse Ox 96 09/25/24 09:25 Oxygen Delivery Method Room Air 09/25/24 09:25 BMI result Body Mass Index 30.4 Const Other: Vital signs reviewed. Constitutional: Non-toxic appearing. No acute distress. Well-developed and well-nourished. HEENT: Normocephalic and atraumatic. There is some cerumen in bilateral external auditory canals but tympanic membranes without erythema, edema, or bulg ing bilaterally and external auditory canals without erythema or edema bilaterally. Moist mucous membranes. No pharyngeal erythema or exudates. Skin: Warm and dry. No rashes or lesions noted. Neck: Full and painless range of motion. No cervical lymphadenopathy. Cardio: Regular rate and rhythm. No murmurs, gallops, or rubs. No lower extremity edema. No JVD. Pulmonary: No respiratory distress. No accessory muscle usage. Clear to auscultation bilaterally without wheezing, crackles, or rhonchi. Gastrointestinal: Soft, nontender, and nondistended in all 4 quadrants. Musculoskeletal: Normal range of motion in joints throughout the body. No de formity or other signs of injury. Neuro: Alert and oriented x4. Cranial nerves 2-12 grossly intact. No focal deficits appreciated. Psych: Normal mood and affect. Assessment & Plan Assessment & Plan (1) Cough: Code(s): R05.9 - Cough, unspecified Qualifiers: Cough type: other Qualified Code(s): R05.8 - Other specified cough Plan: This is an 78-year-old male who presented to the walk-in clinic requesting clearance in order to travel with his family. He states he developed a cough about 3 weeks ago, which was productive of occasionally clear and occasionally green-yellow sputum. He states he started taking ufar-otx-ghuzvcb cough suppressants about 10 days ago and his cough has essentially resolved at this time. He denies any other associated symptoms such as congestion, rhinorrhea, fever/chills, chest pain, or shortness of breath. On physical examination, his lungs are clear to auscultation bilaterally without crackles, rhonchi, or wheezing. Given that patient's symptoms have resolved it has been greater than 10 days, patient is no longer contagious of any viral illness and he was advised that he can travel with his family without restrictions. Patient encouraged to follow-up here if he were to develop persistent or recurrent symptoms. Patient verbalizes understanding and he is in agreement with the plan. Coding Level of Care Code Est Pt Level 3 (67684) Diagnoses Other cough R05.8 Cough type: other
== END 2024-09-25 10:07 | disposition home or self-care (01) ==
LOC: HO.HMCWIC 09:15
PROVIDERS: PCP Internal Medicine; Visit Provider Physician Assistant Medical
DX: R05.8 Other specified cough (principal)

== ENCOUNTER → 2024-09-25 09:15 | Outpatient (BNVA) | payer MEDICARE, BC, SELFPAY | PROVIDERS: PCP Internal Medicine; Visit Provider Physician Assistant Medical | DX: R05.8 Other specified cough (principal) | CPT/HCPCS: 99212 ==

== ENCOUNTER 2025-02-07 06:16 | Day surgery (SDC) | payer MEDICARE, BC, SELFPAY ==
--- OUTSIDE RECORDS SUMMARY | 2024-12-29 16:39 | XMS_ITS | Data Portability ---
Author Organization [place] - [facility], Allergy Address [address] [address] Care Team Providers Care Biometrics Instructor Name Role Phone NEHA SUERO Primary Care Provider Assessment Encounter Date Assessment Date Assessment LastModified by Organization Details LastModified Time 01/27/2024 01/27/2024 78-year-old male presents for cerumen removal. Cerumen removed bilaterally. T-tube remains in place and patent on the left. Persistent perforation on the right which is dry. Continue dry ear precautions and follow-up in 6 months for cerumen. [email or web address] Not available 01/27/2024 11:58:15 04/13/2024 04/13/2024 Recommendations: [...] and follow-up with me in six months. [email or web address] Not available 04/13/2024 09:00:45 07/30/2024 07/30/2024 78-year-old male presents for cerumen removal. Cerumen removed bilaterally. T-tube remains in place and patent on the left. Persistent perforation on the right which is dry. Continue dry ear precautions and follow-up in 6 months for cerumen. Not available 07/30/2024 09:20:21 10/07/2024 10/07/2024 The right tympanic membrane continues to show a small, tube sized perforation the anterior superior quadrant, no signs of otorrhea. The left external auditory canal free of inflammation or infection with patient T-tube in place. He should continue to maintain dry ear [...] does rapidly accumulated cerumen. He will see Jimmy for the three month visit and follow-up with me in six months. Patient will be getting a new Doc's Pro Plug for water exposure today. [email or web address] Not available 10/07/2024 09:00:29 Plan of Treatment Reminders Order Date Submit Date Provider Last Modified By Organization Details Last Modified Time Details Appointments Establish ed 15 2024 09:00A M JIMMY FIGUEROA PA-C Not available Not available Not available Establish ed 15 2024 08:45A M ABBEY WINTERS MD Not available Not available Not available Lab None recorded. Referral None recorded. Procedures None recorded. Surgeries None recorded. Imaging None recorded. Medication Orders None recorded. Patient TargetsNo targets recorded. Patient InstructionsNo instructions recorded. Reason for Referral None Reported. Results Created Date Observation Date Name Description Value Unit Range Abnormal Flag Note LastModifiedBy Organization Detail LastModifiedTime 03/10/2008/04/2020 imagi ng/di agnos tic resul t No [...] audio gram No observ ation record ed. [email or web address] jose Not Available 11:26:07 Result Notes None recorded. Problems Name Problem SNOMED Code Status Onset Date Resolution Date Notes Provider Name and Address Organization Details Recorded Time Impacted cerumen of bilatera l ears 28625619537 54111 Active 2023 JIMMY FIGUEROA PA-C 100 [facility] [address], [place], [address] , [facility] - [facility] 4 11:58:29 Bilatera l disorder of Eustachi an tubes 02973926143 79107 Active 2023 JIMMY FIGUEROA PA-C 100 [facility] [address], [place], [address] , [facility] - [facility] 4 11:58:33 Perforat ion of tympanic membrane 78764505 Active 2023 JIMMY FIGUEROA PA-C 100 [facility] [address], [place], [address] , [facility] 4 11:59:00 Mixed conducti ve and sensorin eural hearing loss of right ear 93931383505 105 Active 2020 Mixed conducti ve and sensorin eural hearing loss, unilater al, right ear with restrict ed hearing on the contrala teral side; Note: Date Diagnose d: 1 10:09 AM (H90.A31 ) Not Available [facility] 4 02:41:59 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 Other specifie d superfic ial mycoses; Note: Date Diagnose d: 2 9:04 AM (B36.8) Not Available [facility] 4 02:41:59 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 75949893217 109 Active 2020 Sensorin eural hearing loss, unilater al, left ear, with restrict ed hearing on the contrala teral side; Note: Date Diagnose d: 1 10:09 AM (H90.A22 ) Not Available [facility] 4 02:42:00 Bilatera l chronic serous otitis 271884203 Completed 201602/20/2024 Chronic serous otitis media, bilatera l; Note: Date Diagnose d: 05/08/20 17 8:59 AM (H65.23) Not Available [facility] 4 02:42:02 Otorrhea of left ear 05043311603 59251 Completed 202102/20/2024 Otorrhea , left ear; Note: Date Diagnose d: 2 9:04 AM (H92.12) Not Available [facility] 4 02:42:03 Impacted cerumen in left ear 35675703996 66864 Active 2016 Impacted cerumen, left ear; Note: Date Diagnose d: 7 4:32 PM (H61.22) Not Available [facility] 4 02:42:03 Impacted cerumen in right ear 68595472165 40713 Active 2017 Impacted cerumen, right ear; Note: Date Diagnose d: 8 8:52 AM (H61.21) Not Available [facility] 4 02:42:04 Sensorin eural hearing loss of bilatera l ears 096203563 Active 2020 Sensorin eural hearing loss, bilatera l; Note: Date Diagnose d: 1 2:59 PM (H90.3) Not Available [facility] 4 02:42:06 Marginal perforat ion of tympanic membrane 09303531 Active 2021 Other marginal perforat ions of tympanic membrane , right ear; Note: Date Diagnose d: 2 8:54 AM (H72.2X1 ) Not Available [facility] 4 02:42:08 Mass of neck 661971681 Active 2016 Localize d swelling , mass and lump, neck; Note: Date Diagnose d: 06/04/20 17 10:03 AM (R22.1) Not Available [facility] 4 02:42:08 Neck swelling 897546715 Active 2016 Localize d swelling , mass and lump, neck; Note: Date Diagnose d: 06/04/20 17 10:03 AM (R22.1) Not Available [facility] 4 02:42:08 Mixed conducti ve and sensorin eural hearing loss, bilatera l 015502624 Active 2016 Mixed conducti ve and sensorin eural hearing loss, bilatera l; Note: Date Diagnose d: 7 4:16 PM (H90.6) Not Available [facility] 4 02:42:09 Chronic serous otitis media of left ear 853619496 Active 2017 Chronic serous otitis media, left ear; Note: Date Diagnose d: 8 9:03 AM (H65.22) Not Available [facility] 4 02:42:10 Chronic serous otitis media of right ear 755852833 Active 2020 Chronic serous otitis media, right ear; Note: Date Diagnose d: 08/22/2020 9:08 AM (H65.21) Not Available [facility] 4 02:42:10 Problem Notes None recorded. Procedures Surgical History Date Name Laterality Status Provider Name and Address Organization Details Recorded Time 5 Cerumen removal with microscope bilateral completed ABBEY WINTERS MD [address] [place] [address],[address], [address], [facility] - [facility] 10/06/2024 20:09:25 5 Cerumen removal without microscope bilat completed JIMMY FIGUEROA PA-C [address] [place] [address],[place] [address], [place], [address], [place] - [facility] 07/30/2024 09:19:48 4 Comp Audio with Tymps - 44393 & 03877 completed RICKI CAVAZOS 100 [facility],[place] [address], [place], [address], [facility] - [facility] 04/13/2024 08:41:06 4 Cerumen removal with microscope bilateral completed ABBEY WINTERS MD [address] [facility],[place] [address], [place], [address], [facility] - [facility] 04/13/2024 08:28:55 4 Cerumen removal without microscope bilat completed JIMMY FIGUEROA PA-C [address] [facility],[place] [address], [place], [address], [facility] - [facility] 01/27/2024 11:57:55 Imaging Results None recorded. Procedure Notes None recorded. Medical Equipment None Reported. Allergies No known drug allergies Medications Name Sig Start Date Stop Date Status Note LastModified by Organization Details LastModified Time celecoxib 200 mg capsule 08/02 completed Medicati on ID: [id number] D uration Value: 90 Brand Name: celecoxi b Send Method: E-Prescr ibed Sub s Allowed: subs OK Medic ationGen ericName : celecoxi b Not Available Not Available Not Available metformin 500 mg tablet 04/24 completed Medicati on ID: [id number] B rand Name: metformi n Send Method: E-Prescr ibed Sub s Allowed: subs OK Medic ationGen ericName : metformi n Not Available Not Available Not Available atorvasta tin 10 mg tablet active Not Available Not Available Not Available metformin 850 mg tablet 04/13 completed Not Available Not Available Not Available metronida zole 500 mg tablet 08/02 completed Medicati on ID: [id number] D uration Value: 7 Brand Name: metronid azole Se nd Method: E-Prescr ibed Sub s Allowed: subs OK Medic ationGen ericName : metronid azole Not Available Not Available Not Available Ciloxan 0.3 % eye drops 04/13 completed Medicati on ID: [id number] D uration Value: 14 Prescri bed By Name: TUCKER Taylor nd Name: Ciloxan Send Method: E-Prescr ibed Sub s Allowed: subs OK Speci al Instruct ion: Instill 4 drops twice a day into the affected ear Medi cationGe nericNam e: Ciloxan Not Available Not Available Not Available ciproflox acin 500 mg tablet 11/05 completed Medicati on ID: [id number] D uration Value: 7 Brand Name: ciproflo xacin HCl Send Method: E-Prescr ibed Sub s Allowed: subs OK Medic ationGen ericName : ciproflo xacin HCl Not Available Not Available Not Available ofloxacin 0.3 % ear drops 4 drop 04/24 completed Medicati on ID: [id number] P rescribe d By Name: Quita Pinon nd Name: ofloxaci n Send Method: E-Prescr ibed Sub s Allowed: subs OK Medic ationGen ericName : ofloxaci n Not Available Not Available Not Available tamsulosi n 0.4 mg capsule 2021 active Medicati on ID: [id number] B rand Name: tamsulos in Send Method: E-Prescr ibed Sub s Allowed: subs OK Medic ationGen ericName : tamsulos in Not Available Not Available Not Available metformin 1,000 mg tablet active Not Available Not Available Not Available clotrimaz ole-betam ethasone 1 %-0.05 % topical cream Apply 1 a small amount twice a day 04/13 completed Medicati on ID: [id number] D uration Value: 14 Brand Name: clotrima zole-leana boogie Send Method: E-Prescr ibed Sub s Allowed: subs OK Speci al Instruct ion: Apply with fingerti p to external ear TID X 2 week and as needed M edicatio nGeneric Name: clotrima zole-bet amethaso ne Not Available Not Available Not Available clotrimaz ole 1 % topical solution 08/06 completed Medicati on ID: [id number] D uration Value: 14 Prescri bed By Name: Quita Pinon nd Name: clotrima trevor [place] Method: E-Prescr ibed Sub s Allowed: subs OK Speci al Instruct ion: 4 drops to affected ear three times a day X 14 days Med icationG enericNa me: clotrima zole Not Available Not Available Not Available hydrochlo rothiazid e 25 mg tablet active Not Available Not Available Not Available Aspir-81 mg tablet,de layed release 04/13 completed Medicati on ID: [id number] B rand Name: Aspir-81 Send Method: E-Prescr [...] as directed 04/13 completed Medicati on ID: [id number] D uration Value: 14 Brand Name: Ciprodex Send Method: E-Prescr ibed Sub s Allowed: subs OK Speci al Instruct ion: x 14 days Med icationG enericNa me: Ciprodex Not Available Not Available Not Available fish oil-dha-e pa 1,200 mg-144 mg-216 mg capsule 2016 active Medicati on ID: [id number] B rand Name: fish oil-dha- epa Send [...] Updated DateTime 07/30/2024 177.8 cm 30.8 kg/m2 89678.36 g Gillian Denis [place] - [facility] 07/30/2024 08:50:05 Date Recorded Body height Body weight Provider Name and Address Organization Details Last Updated DateTime 10/07/2024 177.8 cm 04699.36 g Adina Zepeda [place] - [facility] 10/07/2024 08:38:13 Date Recorded Body height Body mass index (BMI) Body weight Provider Name and Address Organization Details Last Updated DateTime 01/27/2024 177.8 cm 30.8 kg/m2 37639.36 g Citlaly Crawley [place] - [facility] 01/27/2024 11:07:41 Date Recorded Body height Body weight Provider Name and Address Organization Details Last Updated DateTime 04/13/2024 177.8 cm 04663.36 g Adina Zepeda [place] - [facility] 04/13/2024 08:16:29 Social History None recorded. Functional Status None recorded. Mental Status None recorded. Family History Nothing Reported. Medical History Condition Response Diabetes Y Cancer Y Hypertension Y High Cholesterol Y Past Encounters Encounter ID Performer Location Encounter Start Date Encounter Closed Date Diagnosis/Indication Diagnosis SNOMED-CT Code Diagnosis ICD10 Code Diagnosis Note [id number] JIMMY FIGUEROA PA-C [facility] [address] [address] 01/27/2024 11:00:59 01/27/2024 11:26:38 Perforation of tympanic membrane 70908929 H72.01 Impacted c erumen of bilateral ears 0251894298 862540 H61.23 Bilateral disorder of Eustachian tubes 9528977168 958519 H69.93 [id number] ABBEY WINTERS MD [facility] [address] [address] 04/13/2024 08:11:43 04/13/2024 09:02:17 Bilateral disorder of Eustachian tubes 7281717779 183798 H69.93 Perforatio n of tympanic membrane 29564276 H72.01 Impacted c erumen of bilateral ears 2766986881 498958 H61.23 Sensorineu ral hearing loss of bilateral ears 610868233 H90.3 Audiologic al evaluation results:Ri ght ear:Mild to moderately -severe sensorineu ral hearing loss with excellent word recognitio n. Conductive componenet at 4kHz only.Left ear:Normal sloping to moderately -severe sensorineu ral hearing loss with excellent word recognitio n.Tympanom etry:Right Ear:Type ALeft Ear:Type Ad [id number] RICKI CAVAZOS [facility] [address] [address] 04/13/2024 08:40:31 04/14/2024 07:37:33 Sensorineural hearing loss of bilateral ears 034850258 H90.3 Audiologic al evaluation results:Ri ght ear:Mild to moderately -severe sensorineu ral hearing loss with excellent word recognitio n. Conductive componenet at 4kHz only.Left ear:Normal sloping to moderately -severe sensorineu ral hearing loss with excellent word recognitio n.Tympanom etry:Right Ear:Type ALeft Ear:Type Ad [id number] JIMMY FIGUEROA PA-C [facility] [address] [address] 07/30/2024 08:34:03 07/30/2024 09:15:39 Bilateral disorder of Eustachian tubes 4031296247 106591 H69.93 Impacted c erumen of bilateral ears 0114438545 322188 H61.23 [id number] ABBEY WINTERS MD [facility] [address] [address] 10/07/2024 08:33:42 10/07/2024 09:10:46 Bilateral disorder of Eustachian tubes 1338749002 145982 H69.93 Perforatio n of tympanic membrane 21861201 H72.01 Impacted c erumen of bilateral ears 5116129620 690961 H61.23 Health Concerns Section Related Observation LastModified by Organization Detai ls LastModified Time None Recorded Concern Status LastModified by Organization Details LastModified Time None Recorded Advance Directives Directive None Recorded Payers Insurance Date Sequence Insurance Name Policy Number Policy [place] Covered Member ID Marin Member ID Guarantor Name 10/07/2024 1 [place] [employer] Gregory English [id number] Gregory English 10/07/2024 2 [place] [employer] 111 Gregory English [id number] Gregory English Notes Date Note Type Note Provider Name and Address Organization Details Recorded Time 01/27/2024 text/html 78-year-old male presents for cerumen removal. No acute issues since his last visit. History of chronic right TM perforation following T-tube. ABBEY WINTERS MD [address], [address], [facility] - [facility] [place] 01/27/2024 14:00:50 04/13/2024 text/html 78-year-old male presents [...] the left recently. ABBEY WINTERS MD 100 [facility],[address], [address], [facility] - [facility] 04/13/2024 09:01:14 04/13/2024 text/html Audiological Evaluation HPIReported bypatient.Hearing loss perceived:hearing loss in both ears: right ear worse Onset:gradual RICKI CAVAZOS 100 [facility],[address], [address], [facility] - [facility] [place] 04/13/2024 08:46:32 07/30/2024 text/html 78-year-old male presents for cerumen removal. No acute issues since his last visit. History of chronic right TM perforation following T-tube. DEVENDRA WOOD MD 100 [facility],[address], [address], [facility] - [facility] 07/30/2024 13:01:11 10/07/2024 text/html Pt presents for cerumen removal. History of chronic ETD s/p BMT x 2 now statuspost bilateral dilation of the eustachian tubes and right M&T on 08/30/20. The right tube had extruded leaving a small (likely therapeutic) residual perforation in the drum. He has noted no pressure or blockage sensation in the right ear since his last visit. He still has a T-tube in the left ear. No recent pain or discharge. Last visit with ear cleaning 3 months ago with Jimmy. ABBEY WINTERS MD [address] [place] [address], [address], [place] - [facility] 10/07/2024 09:00:53
[2025-02-03 14:16] VITALS: BMI 32.3
--- NOTE | 2025-02-04 08:14 | HO.ANESPROP2 ---
HPI - Anesthesia Eval Consult details Narrative: 79yo M for Colonoscopy PMFSH Active Problems Active Problems: All Active Problems Plant allergic contact dermatitis (Acute) Nocturia more than twice per night (Acute) Lower thoracic back pain (Acute) BPH (benign prostatic hyperplasia) (Acute) Past Medical History Medical History Diabetes Colon cancer BPH (benign prostatic hyperplasia) Hypercholesterolemia Hypertension Family History Family History Father History of leukemia Mother History of emphysema Family history of problems with anesthesia: No Surgical History Surgical History History of placement of ear tubes History of colonoscopy History of colectomy History of transurethral resection of prostate History of excision of pilonidal cyst History of Problems with Anesthesia: No Social History Social History Are you a primary post anesthesia care unit nurse to a significant other at home: No Do you presently have visiting nurse or other home services: No Alcohol intake: never Patient Tobacco Use Status: Never used Tobacco Have you been hit, kicked, punched, or otherwise hurt by someone within the past year? If so, by whom?: No Are you DNR?: No Advance Directives: No Advance Directives Information Provided: Yes Poor oral hygiene: Yes Current occupational status: retired Current occupation: rt handed Meds Allergies Allergy/AdvReac Type Severity Reaction Status Date / Time No Known Allergies (No Known Allergy Verified 02/07/25 06:41 Allergies*) Home Medications ?Medication ?Instructions ?Recorded ?Confirmed ?Last Taken ?Type atorvastatin 10 mg tablet 10 mg PO DAILY 06/20/20 02/03/25 Unknown History hydrochlorothiazide 25 mg tablet 25 mg PO DAILY 06/20/20 02/03/25 Unknown History lisinopril 40 mg tablet 40 mg PO DAILY 06/20/20 02/03/25 11/16/21 History omega-3 fatty acids-fish oil 360 1 cap PO BID 06/20/20 02/03/25 Unknown History mg-1,200 mg capsule (Fish Oil) ibuprofen 600 mg tablet 600 mg PO TID PRN Pain 06/20/22 02/03/25 Unknown History metformin 850 mg tablet 1,000 mg PO BID 06/29/24 02/03/25 Unknown History vibegron 75 mg tablet (Gemtesa) 75 mg PO DAILY 09/25/24 02/03/25 Unknown History empagliflozin 10 mg tablet 10 mg PO DAILY 02/07/25 02/07/25 01/29/25 History (Jardiance) Exam Height,Weight and Vital Signs: Height 5 ft 9 in Weight 99.337 kg Assessment and Plan Assessment Anesthesia Assessment: Chart Reviewed Final Anesthetic Review Family History of Problems with Anesthesia: No History of Problems with Anesthesia: No
[2025-02-07 06:43] VITALS: BMI 30.3
[2025-02-07 06:57] VITALS: BP 137/74; PULSE 82; RESP 18; TEMP 36.7; O2SAT 96
[2025-02-07 06:57] LABS: Glucose, Whole Blood 138 mg/dL (60-115)
[2025-02-07] MEDS: Lactated Ringers 1,000 ML 100 ML IVCONT (06:57)
--- NOTE | 2025-02-07 07:50 | HO.ANESPROP2 ---
[facility] Active Problems Active Problems: All Active Problems (Updated 02/03/25 @ 14:18 by Debo Wiggins RN) Plant allergic contact dermatitis (Acute) Nocturia more than twice per night (Acute) Lower thoracic back pain (Acute) BPH (benign prostatic hyperplasia) (Acute) Past Medical History Medical History Diabetes Colon cancer BPH (benign prostatic hyperplasia) Hypercholesterolemia Hypertension Functional capacity: independent ambulation Family History Family History Father History of leukemia Mother History of emphysema Family history of problems with anesthesia: No Surgical History Surgical History History of placement of ear tubes History of colonoscopy History of colectomy History of transurethral resection of prostate History of excision of pilonidal cyst History of Problems with Anesthesia: No Social History Social History Are you a primary medical care evaluation specialist to a significant other at home: No Do you presently have visiting nurse or other home services: No Alcohol intake: never Patient Tobacco Use Status: Never used Tobacco Have you been hit, kicked, punched, or otherwise hurt by someone within the past year? If so, by whom?: No Are you DNR?: No Advance Directives: No Advance Directives Information Provided: Yes Poor oral hygiene: Yes Current occupational status: retired Current occupation: rt handed Meds Allergies Allergy/AdvReac Type Severity Reaction Status Date / Time No Known Allergies (No Known Allergy Verified 02/07/25 06:41 Allergies*) Active Medications: Current Medications Lactated Ringer's (Lr) 1,000 mls @ 100 mls/hr IVCONT .Q10H JANEL Last Admin: 02/07/25 06:57 Dose: 100 mls/hr Sodium Biphosphate/Sodium Phosphate (Sodium Phosphate,Meagher-Dibasic 133 Ml Enema) 133 ml IA ONCE PRN PRN Reason: Poor Colonoscopy Prep Results Home Medications ?Medication ?Instructions ?Recorded ?Confirmed ?Last Taken ?Type atorvastatin 10 mg tablet 10 mg PO DAILY 06/20/20 02/03/25 Unknown History hydrochlorothiazide 25 mg tablet 25 mg PO DAILY 06/20/20 02/03/25 Unknown History lisinopril 40 mg tablet 40 mg PO DAILY 06/20/20 02/03/25 11/16/21 History omega-3 fatty acids-fish oil 360 1 cap PO BID 06/20/20 02/03/25 Unknown History mg-1,200 mg capsule (Fish Oil) ibuprofen 600 mg tablet 600 mg PO TID PRN Pain 06/20/22 02/03/25 Unknown History metformin 850 mg tablet 1,000 mg PO BID 06/29/24 02/03/25 Unknown History vibegron 75 mg tablet (Gemtesa) 75 mg PO DAILY 09/25/24 02/03/25 Unknown History empagliflozin 10 mg tablet 10 mg PO DAILY 02/07/25 02/07/25 01/29/25 History (Jardiance) Exam Height,Weight and Vital Signs: Height 5 ft 9 in Weight 93 kg Last Vital Signs Temp 98.0 F 02/07/25 06:57 Pulse 82 02/07/25 06:57 Resp 18 02/07/25 06:57 BP 137/74 02/07/25 06:57 Pulse Ox 96 02/07/25 06:57 O2 Del Method Room Air 02/07/25 06:57 Pertinent Lab Results Pertinent Lab Results: Laboratory Tests 02/07/25 06:54 POC Glucose 138 H Airway Mallampati Class: IV TM Dist: >3cm Neck ROM: Full Heart: RRR Lungs: CTA Assessment and Plan Assessment Anesthesia Assessment: Anesthesia Plan Discussed Final Anesthetic Review Family History of Problems with Anesthesia: No History of Problems with Anesthesia: No NPO: Yes ASA Class: II Final Preanesthetic Review: Meds/Allgs Chart Reviewed, Consent Obtained/Reviewed and Anes Risks/Benef Reviewed Patient Risk: Intermediate Procedure Risk: Low Anesthetic Plan Anesthetic Plan: MAC: Disposition: Standard PACU
[2025-02-07 08:25] VITALS: BP 113/64; PULSE 62; RESP 16; TEMP 36.2; O2SAT 97
--- NOTE | 2025-02-07 08:30 | PM.OP ---
Brief Operative Note Date of Service: 02/07/25 Pre-op diagnosis: Screening Post-op diagnosis: other (Diverticulosis) Procedure: Colonoscopy to the anastomosis and small intestine Surgeon: Gregory Murphy MD Anesthesia: MAC Was an Confectionery Laboratory Manager used for this Procedure?: No Estimated blood loss (mL): 0 Pathology: none sent Condition: stable Disposition: PACU
[2025-02-07 08:40] VITALS: BP 132/87; PULSE 60; RESP 16; TEMP 36.2; O2SAT 98
--- NOTE | 2025-02-07 09:25 | OP_ITS ---
DATE OF SERVICE: 02/07/2025 SURGEON: Gregory Murphy MD INDICATIONS: The patient presents for evaluation of personal history of colon cancer, personal history of tubular adenomas, and colorectal cancer screening. Full consent has been obtained from him for this, including risks of bleeding and perforation. PREOPERATIVE DIAGNOSIS: POSTOPERATIVE DIAGNOSIS: PROCEDURE PERFORMED: Colonoscopy to the anastomosis and small bowel. ESTIMATED BLOOD LOSS: COMPLICATIONS: ANESTHESIA: Medication used, monitored anesthesia care. ASSISTANTS: SPECIMENS: PREOPERATIVE DIAGNOSES: Colorectal cancer screening, personal history of colon cancer, personal history of tubular adenomas of the colon. POSTOPERATIVE DIAGNOSES: Colorectal cancer screening, personal history of colon cancer, personal history of tubular adenomas of the colon, diverticulosis, normal anastomosis, internal hemorrhoids. DESCRIPTION OF PROCEDURE: The patient was placed in left lateral decubitus position. The digital rectal exam revealed no abnormalities. The Olympus video pediatric colonoscope was entered into the rectum and advanced easily to the anastomosis. Once at the anastomosis I did visualize small bowel mucosa which appeared normal. The small bowel was cannulated and appeared normal. The scope was withdrawn back in the colon. The anastomosis was completely normal. The scope was slowly withdrawn assessing all mucosal surfaces carefully. Preparation was excellent. I did not visualize any sign of polyps, colitis, nor angiodysplasia. There was a mild amount of sigmoid diverticulosis. In the rectum, scope was retroflexed visualizing internal hemorrhoids, but no other pathology. The rectal mucosa appeared normal. The scope was straightened and withdrawn from the patient. He tolerated the procedure well and was returned to the recovery area in stable condition. IMPRESSION: 1. Diverticulosis. 2. Internal hemorrhoids. PLAN: Given today's negative exam and his age, as well as multiple colonoscopies since the diagnosis of his cancer 20 years ago, I do not think he would need any further screening colonoscopies. As such, he will see me on a p.r.n. basis. MD HAI Carmona/ESTEE / [id number] MTDD
--- NOTE | 2025-02-07 12:31 | HO.POSTANES ---
Post Anesthesia Evaluation Post Anesthesia Evaluation Date of Service: 02/07/25 Vital Signs: Vital Signs Temp Pulse Resp BP Pulse Ox O2 Del Method 02/07/25 08:40 97.1 F 60 16 132/87 98 Room Air 02/07/25 08:25 97.1 F 62 16 113/64 97 Room Air 02/07/25 06:57 98.0 F 82 18 137/74 96 Room Air Anesthesia: Monitored Mental Status: Awake Pain Control: Satisfactory Nausea/Vomiting: None Hydration: Adequate Anesthesia-Related Issues: No Anes. Related Issues
== END 2025-02-07 09:15 | disposition home or self-care (01) ==
PROVIDERS: PCP Internal Medicine; Visit Provider Internal Medicine
PROC: 0DJD8ZZ Inspection of Lower Intestinal Tract, Via Natural or Artificial Opening Endoscopic (ICD-10-PCS; CPT 45378; principal; 2025-02-07 07:30)
DX: Z12.11 Encounter for screening for malignant neoplasm of colon (principal); Z85.038 Personal history of other malignant neoplasm of large intestine; Z86.0101 Personal history of adenomatous and serrated colon polyps; Z98.0 Intestinal bypass and anastomosis status; K57.30 Diverticulosis of large intestine without perforation or abscess without bleeding; K64.8 Other hemorrhoids; I10 Essential (primary) hypertension; E11.9 Type 2 diabetes mellitus without complications; E78.5 Hyperlipidemia, unspecified; Z79.1 Long term (current) use of non-steroidal anti-inflammatories (NSAID); Z79.84 Long term (current) use of oral hypoglycemic drugs; Z79.899 Other long term (current) drug therapy; Z90.49 Acquired absence of other specified parts of digestive tract
CPT/HCPCS: G0105; 82947

== ENCOUNTER 2025-04-04 08:23 | Outpatient (AMB) | payer MEDICARE, BC, SELFPAY ==
--- OUTSIDE RECORDS SUMMARY | 2025-02-07 03:30 | XMS_ITS ---
Author Organization [facility] Address [address] [place] [phone] Care Team Providers Care Orchardist Name Role Phone Oniel Doty MD Primary Care Provider Unavailab Will Drake Unavailable [phone] REASON FOR VISIT screening colon Encounters Encounter Location Date Provider Diagnosis [facility] Outpatient [address] [place], [place] [phone] 02/07/2025 Will Murphy Plan Of Treatment No Information Progress Notes * WILL ENGLISH LDOB: [birth year] (79 yo M)Acc No.[id number]:02/07/2025 COLON WITH MAC Patient: WILL SHEN Provider: Cindy Murphy MD :1945 A ge:79 Y S ex:Male Date:02/07/2025 Address:[address] [place], [place] [phone] Pcp:Oniel Doty MD Subjective: * Chief Complaints: [...] MD Date: 0 02/07/2025 Generated for Saritai taylor/Fakarinag/eTransmitting on: 0 04/04/2025 09:25 AM EDT
--- OUTSIDE RECORDS SUMMARY | 2025-04-04 09:26 | XMS_ITS | Patient Health Record ---
Author Organization [facility] Address [address] [place] [phone] Care Team Providers Care Educational Aide Name Role Phone Soren MONTANO, Oniel Primary Care Provider UnavailWill Wang Unavailable [phone] Allergies No Known Allergies Results Component Value Reference Range Notes Glucose, Whole Blood Reviewed date:02/08/2025 10:12:53 AM Interpretation: Performing Lab:[facility], [address] [place] [phone] Notes/Report: Glucose, Whole Blood 138 60-115 mg/dL METER # : [id number] Reason For Referral No Information Medications Medication SIG (Take, Route, Frequency, Duration) Notes Start Date End Date Status metFORMIN HCl 1000 MG 1 tablet with a me al Orally Twice a day Active Lisinopril 40 MG 1 tablet Orally twic e a day Active Gemtesa 75 MG 1 tablet Orally Active Ibuprofen 600 MG 1 tablet with food o r milk as needed Orally Three times a day,prn Active Fish Oil 1200 MG 1 capsule Orally Onc e a day Active hydroCHLOROthiazide 25 MG 1 tablet Orall y Once a day Active Atorvastatin Calcium 10 MG 1 tablet Oral ly Once a day Active Immunizations Vaccine Route Administration Date Status Comme nts Flu vaccine no Preserv 3 and > Unknown 04/13/2014 Admin istered Influenza Unknown 05/26/2018 Administered Influenza Unknown 03/22/2021 Administered Problems Problem Type SNOMED Code ICD Code Onset Dates Problem Status W/U Status Risk Notes Problem 8373513 Diverticulitis o f large intestine without perforation or abscess without bleeding (K57.32) Active confirmed Problem 525790901 Encounter for screening for malignant neoplasm of colon (Z12.11) Active confirmed Problem 955718466 History of adenomatous polyp of colon (Z86.010) Active confirmed Problem [facility] current use of non-steroidal anti-inflammatory drug (385553586435101) long term care phlebotomist (current) use of non-steroidal anti-inflammatori es (NSAID) (Z79.1) Active confirmed Problem History of malignant neoplasm of colon (644288720) History of colon cancer (Z85.038) Active confirmed Problem 882770284 Personal history of colon cancer (Z85.038) Active confirmed Problem Long-term current use of drug therapy (416112066) long term care phlebotomist (current) use of oral hypoglycemic drugs (Z79.84) Active confirmed Problem Diverticulosis of colon (276916425) Diverticulosis of colon (K57.30) Active confirmed Problem History of gastrointestinal tract bypass (588492857) Hx of Billroth II operation (Z98.0) Active confirmed Vital Signs Blood pressure diastolic 77 mm Hg 11/16/2024 Height 69 in 11/16/2024 Blood pressure systolic 111 mm Hg 11/16/2024 Weight 219 lbs 11/16/2024 BMI 32.34 kg/m2 11/16/2024 Procedures Procedure Date Ordered Date Performed Result Body Sit e COLONOSCOPY 11/16/2024 N/A Encounters Encounter Location Date Provider Diagnosis [facility] [place] Outpatient [address] [place] [phone] 02/07/2025 Will Murphy [facility] [address] [phone] 11/16/2024 Will Murphy Personal history of colon cancer Z85.038 ; [facility] (current) use of non-steroidal anti-inflammatories (NSAID) Z79.1 ; History of adenomatous polyp of colon Z86.010 ; Encounter for screening for malignant neoplasm of colon Z12.11 and long term care phlebotomist (current) use of oral hypoglycemic drugs Z79.84 [facility] [address] [phone] 01/24/2025 Will Murphy [facility] [address] [address] 02/22/2025 Will Murphy Assessments Encounter Date Diagnosis (ICD Code) Assessment Notes Treatment Notes Treatment Clinical Notes Section Notes 11/16/2024 long term care phlebotomist (current) use of non-steroidal anti-inflammator ies (NSAID) (ICD-10 - Z79.1) Overall, Miguel appears quite well. He is not having any new nor worrisome GI complaints and his overall health remains very good. As such he is definitely interested in having a follow-up colonoscopy given his previous history of colon cancer and polyps, as well as his continued good health. We did review the rationale for this in regard to colorectal cancer prevention. Full consent has been obtained for this, including risks of bleeding and perforation. The procedure will be done with monitored anesthesia care. He was given the below list of instructions regarding adjustment of all of his medications for the procedure. Miguel was comfortable with this plan. Thank you again for allowing me to participate in Miguel's care. I shall continue to keep you advised of his progress.. 11/16/2024 Personal history of colon cancer (ICD-10 - Z85.038) Overall, Miguel appears quite well. He is not having any new nor worrisome GI complaints and his overall health remains very good. As such he is definitely interested in having a follow-up colonoscopy given his previous history of colon cancer and polyps, as well as his continued good health. We did review the rationale for this in regard to colorectal cancer prevention. Full consent has been obtained for this, including risks of bleeding and perforation. The procedure will be done with monitored anesthesia care. He was given the below list of instructions regarding adjustment of all of his medications for the procedure. Miguel was comfortable with this plan. Thank you again for allowing me to participate in Miguel's care. I shall continue to keep you advised of his progress.. 11/16/2024 History of adenomatous polyp of colon (ICD-10 - Z86.010) Overall, Miguel appears quite well. He is not having any new nor worrisome GI complaints and his overall health remains very good. As such he is definitely interested in having a follow-up colonoscopy given his previous history of colon cancer and polyps, as well as his continued good health. We did review the rationale for this in regard to colorectal cancer prevention. Full consent has been obtained for this, including risks of bleeding and perforation. The procedure will be done with monitored anesthesia care. He was given the below list of instructions regarding adjustment of all of his medications for the procedure. Miguel was comfortable with this plan. Thank you again for allowing me to participate in Miguel's care. I shall continue to keep you advised of his progress.. 11/16/2024 Encounter for screening for malignant neoplasm of colon (ICD-10 - Z12.11) Overall, Miguel appears quite well. He is not having any new nor worrisome GI complaints and his overall health remains very good. As such he is definitely interested in having a follow-up colonoscopy given his previous history of colon cancer and polyps, as well as his continued good health. We did review the rationale for this in regard to colorectal cancer prevention. Full consent has been obtained for this, including risks of bleeding and perforation. The procedure will be done with monitored anesthesia care. He was given the below list of instructions regarding adjustment of all of his medications for the procedure. Miguel was comfortable with this plan. Thank you again for allowing me to participate in Miguel's care. I shall continue to keep you advised of his progress.. 11/16/2024 long term care phlebotomist (current) use of oral hypoglycemic drugs (ICD-10 - Z79.84) Overall, Miguel appears quite well. He is not having any new nor worrisome GI complaints and his overall health remains very good. As such he is definitely interested in having a follow-up colonoscopy given his previous history of colon cancer and polyps, as well as his continued good health. We did review the rationale for this in regard to colorectal cancer prevention. Full consent has been obtained for this, including risks of bleeding and perforation. The procedure will be done with monitored anesthesia care. He was given the below list of instructions regarding adjustment of all of his medications for the procedure. Miguel was comfortable with this plan. Thank you again for allowing me to participate in Miguel's care. I shall continue to keep you advised of his progress.. Plan Of Treatment Pending Test Test Name Order Date COLONOSCOPY 11/16/2024 Future Test Test Name Order Date COLONOSCOPY 12/27/2014 COLONOSCOPY 05/26/2018 COLONOSCOPY 10/12/2021 Insurance Providers Payer Name Payer Address Payer Phone Subscriber Number Group Number Insured Name Patient Relationship to Insured Coverage Start Date Coverage End Date MEDICARE OF [place] [address] [place] [address] [id number] VALERIYWILLIANWILL Self - patient is the insured [address] [facility] [address] [place], [place] [id number] WILL ENGLISH Self - patient is the insured Medical (General) History Medical History History ICD Code Hx of colon cancer-10/2004-right colectom y by Dr. Gonzalez Colon polyps-tubular adenoma s-colonoscopy in December of 2011--this was negative for any recurrent polyps--it did reveal his known diverticulosis and internal hemorrhoids; colonoscopy in February of 2015-one small tubular adenoma removed HTN NIDDM Hyperlipidemia Denies [place],CVA,Lung disease,renal disease Diverticulitis in the left c olon in 11/2014--treated with outpt antibiotics--he has had other episodes of diverticulitis including 2 in 2018, most recently as of February 2018--is followed by Dr. Yancey as well Negative colonoscopy in 06/2018 Colonoscopy 10/2021 with 2 tubular adenom as removed Surgical History Surgery Date(Month/Year) cateracts bilateral 2022 Ear tubes Prostate surgeries Pilonidal cyst X 3 Colon cancer surgery--right colectomy 07 12
== END 2025-04-04 08:34 | disposition home or self-care (01) ==
LOC: HO.HMGAL 08:23
PROVIDERS: PCP Internal Medicine; Visit Provider Registered Nurse Emergency
DX: J30.89 Other allergic rhinitis (principal)
CPT/HCPCS: 95117; 95165

== ENCOUNTER 2025-05-04 08:23 | Outpatient (AMB) | payer MEDICARE, BC, SELFPAY ==
--- OUTSIDE RECORDS SUMMARY | 2025-02-07 03:30 | XMS_ITS ---
Author Organization [facility] Address [address] [place] [phone] Care Team Providers Care Weigher Operator Name Role Phone Oniel Doty MD Primary Care Provider Unavailab Will Drake Unavailable [phone] REASON FOR VISIT screening colon Encounters Encounter Location Date Provider Diagnosis [facility] [place] [address] [place], [place] [phone] 02/07/2025 Will Murphy Plan Of Treatment No Information Progress Notes * WILL ENGLISH LDOB: 4 (79 yo M)Acc No.[id number]:02/07/2025 COLON WITH MAC Patient: WILL SHEN Provider: Cindy Murphy MD :1945 A ge:79 Y S ex:Male Date:02/07/2025 Address:[address] [place], [place] [phone] Pcp:Oniel Doty MD Subjective: * Chief Complaints: [...] Murphy MD Date: 0 02/07/2025 Generated for Saritai taylor/Liboriog/eTransmitting on: 1 08:42 AM EDT
--- OUTSIDE RECORDS SUMMARY | 2025-05-04 08:42 | XMS_ITS | Patient Health Record ---
Author Organization [facility] Address [address] [place] [address] Care Team Providers Care Pasteuriser Operator Name Role Phone Soren MONTANO, Oniel Primary Care Provider UnavailWill Wang Unavailable [phone] Allergies No Known Allergies Results Component Value Reference Range Notes Glucose, Whole Blood Reviewed date:02/08/2025 10:12:53 AM Interpretation: Performing Lab:[facility], [address] [place] [id number] Notes/Report: Glucose, Whole Blood 138 60-115 mg/dL METER # : [id number] Reason For Referral No Information Medications Medication [...] Problem Status W/U Status Risk Notes Problem Diverticulitis of colon (893992252) Diverticulitis of large intestine without perforation or abscess without bleeding (K57.32) Active confirmed Problem Screening for malignant neoplasm of colon (277577565) Encounter for screening for malignant neoplasm of colon (Z12.11) Active confirmed Problem History of adenomatous polyp of colon (054875441) History of adenomatous polyp of colon (Z86.010) Active confirmed Problem ad terminal makeup operator current use of non-steroidal anti-inflammatory drug (854643767340029) ad terminal makeup operator (current) use of non-steroidal anti-inflammatori es (NSAID) (Z79.1) Active confirmed Problem History of malignant neoplasm of colon (132224425) History of colon cancer (Z85.038) Active confirmed Problem History of malignant neoplasm of colon (324106528) Personal history of colon cancer (Z85.038) Active confirmed Problem Long-term current use of drug therapy (648616207) ad terminal makeup operator (current) use of oral hypoglycemic drugs (Z79.84) Active confirmed Problem Diverticulosis of colon (067399207) Diverticulosis of colon (K57.30) Active confirmed Problem History of gastrointestinal tract bypass (114698510) Hx of Billroth II operation (Z98.0) Active confirmed Vital Signs Blood pressure diastolic 77 mm Hg 11/16/2024 Height 69 in 11/16/2024 Blood pressure systolic 111 mm Hg 11/16/2024 Weight 219 lbs 11/16/2024 BMI 32.34 kg/m2 11/16/2024 Procedures Procedure Date Ordered Date Performed Result Body Sit e COLONOSCOPY 11/16/2024 N/A Encounters Encounter Location Date Provider Diagnosis [facility] [place] [address] [place] [id number] 02/07/2025 [facility] [address] [address] 11/16/2024 Will Murphy Personal history of colon cancer Z85.038 ; alf (current) use of non-steroidal anti-inflammatories (NSAID) Z79.1 ; History of adenomatous polyp of colon Z86.010 ; Encounter for screening for malignant neoplasm of colon Z12.11 and ad terminal makeup operator (current) use of oral hypoglycemic drugs Z79.84 [facility] [address] [address] 01/24/2025 Will Murphy [facility] [address] [address] 02/22/2025 Will Murphy Assessments Encounter Date Diagnosis (ICD Code) Assessment Notes Treatment Notes Treatment Clinical Notes Section Notes 11/16/2024 alf (current) use of non-steroidal anti-inflammator ies (NSAID) [...] keep you advised of his progress.. 11/16/2024 alf (current) use of oral hypoglycemic drugs (ICD-10 [...] Date MEDICARE OF [place] [address] [place] [address] [id number] WILL ENGLISH Self - patient is the insured 9 [facility] [address] [place], [place] [id number] WILL ENGLISH Self - patient is the insured Medical (General) History Medical History History ICD Code Hx of colon cancer-10/2004-right colectom y by Dr. Gonzalez Colon polyps-tubular adenoma s-colonoscopy in December of 2011--this was negative for any recurrent polyps--it did reveal his known diverticulosis and internal hemorrhoids; colonoscopy in February of 2015-one small tubular adenoma removed HTN NIDDM Hyperlipidemia Denies [place],CVA,Lung disease,renal disease Diverticulitis in the left c olon in 11/2014--treated with outpt antibiotics--he has had other episodes of diverticulitis including 2 in 2017, most recently as of February 2018--is followed by Dr. Yancey as well Negative colonoscopy in 06/2018 Colonoscopy 10/2021 with 2 tubular adenom as removed Surgical History Surgery Date(Month/Year) cateracts bilateral 2022 Ear tubes Prostate surgeries Pilonidal cyst X 3 Colon cancer surgery--right colectomy 07 12
== END 2025-05-04 08:23 | disposition home or self-care (01) ==
LOC: HO.HMGAL 08:23
PROVIDERS: PCP Internal Medicine; Visit Provider Registered Nurse Emergency
DX: J30.89 Other allergic rhinitis (principal)
CPT/HCPCS: 95117; 95165

== ENCOUNTER 2025-06-01 08:21 | Outpatient (AMB) | payer MEDICARE, BC, SELFPAY ==
--- OUTSIDE RECORDS SUMMARY | 2025-02-07 02:30 | XMS_ITS ---
Author Organization [facility] Address [address] [place] [address] Care Team Providers Care Product Introduction Manager Name Role Phone Oniel Doty MD Primary Care Provider Unavailab Will Drake Unavailable [phone] REASON FOR VISIT screening colon Encounters Encounter Location Date Provider Diagnosis [facility] [place] Outpatient [address] [place], [place] [phone] 02/07/2025 Will Murphy Plan Of Treatment No Information Progress Notes * VALERIYWILL DORSEY LDOB: 4 (79 yo M)Acc No.[id number]:02/07/2025 COLON WITH MAC Patient: WILL SHEN Provider: Cindy Murphy MD :1945 A ge:79 Y S ex:Male Date:02/07/2025 Address:[address] [place], [place] [phone] Pcp:Oniel Doty MD Subjective: * Chief Complaints: * 1 . Screening colon. * Medical History: Objective: * Vitals: Assessment: Plan: * Treatment: * * The named appointment provid er may or may not be the originator of this progress note, and it is not deemed complete until electronically signed by the appointment provider. Sign off status: Pending * Provider: Cindy Murphy MD Date: 0 02/07/2025 Generated for Ronaldo vazquez/Kandice/eTransmitting on: 1 08/01/2024 08:29 AM EST
--- OUTSIDE RECORDS SUMMARY | 2025-06-01 08:29 | XMS_ITS | Patient Health Record ---
Author Organization [facility] Address [address] [place] [address] Care Team Providers Care Support Teacher Name Role Phone Soren MONTANO, Oniel Primary Care Provider UnavailWill Wang Unavailable [phone] Allergies No Known Allergies Results Component Value Reference Range Notes Glucose, Whole Blood Reviewed date:02/08/2025 10:12:53 AM Interpretation: Performing Lab:[facility], [address] [place] [id number] Notes/Report: Glucose, Whole Blood 138 60-115 mg/dL METER # : [id number] Reason For Referral No Information Medications Medication [...] Status Risk Notes Problem Diverticulitis of colon (870757568) Diverticulitis of large intestine without perforation or abscess without bleeding (K57.32) Active confirmed Problem Screening for malignant neoplasm of colon (343778815) Encounter for screening for malignant neoplasm of colon (Z12.11) Active confirmed Problem History of adenomatous polyp of colon (503920159) History of adenomatous polyp of colon (Z86.010) Active confirmed Problem medical terminologist current use of non-steroidal anti-inflammatory drug (589401099443035) jail (current) use of non-steroidal anti-inflammatori es (NSAID) (Z79.1) Active confirmed Problem History of malignant neoplasm of colon (071795998) History of colon cancer (Z85.038) Active confirmed Problem History of malignant neoplasm of colon (053918497) Personal history of colon cancer (Z85.038) Active confirmed Problem Long-term current use of drug therapy (428878499) medical terminologist (current) use of oral hypoglycemic drugs (Z79.84) Active confirmed Problem Diverticulosis of colon (962061441) Diverticulosis of colon (K57.30) Active confirmed Problem History of gastrointestinal tract bypass (170295977) Hx of Billroth II operation (Z98.0) Active confirmed Vital Signs Blood pressure diastolic 77 mm Hg 11/16/2024 Height 69 in 11/16/2024 Blood pressure systolic 111 mm Hg 11/16/2024 Weight 219 lbs 11/16/2024 BMI 32.34 kg/m2 11/16/2024 Procedures Procedure Date Ordered Date Performed Result Body Sit e COLONOSCOPY 11/16/2024 N/A Encounters Encounter Location Date Provider Diagnosis [facility] [place] [address] [place] [id number] 02/07/2025 [facility] [address] [address] 11/16/2024 Will Murphy Personal history of colon cancer Z85.038 ; medical terminologist (current) use of non-steroidal anti-inflammatories (NSAID) Z79.1 ; History of adenomatous polyp of colon Z86.010 ; Encounter for screening for malignant neoplasm of colon Z12.11 and medical terminologist (current) use of oral hypoglycemic drugs Z79.84 [facility] [address] [address] 01/24/2025 Will Murphy [facility] [address] [address] 02/22/2025 Will Murphy Assessments Encounter Date Diagnosis (ICD Code) Assessment Notes Treatment Notes Treatment Clinical Notes Section Notes 11/16/2024 jail (current) use of non-steroidal anti-inflammator ies (NSAID) [...] keep you advised of his progress.. 11/16/2024 medical terminologist (current) use of oral hypoglycemic drugs (ICD-10 [...] all of his medications for the procedure. Migule was comfortable with this plan. Thank you [...] [place] [address] [place] [address] [id number] WILL ENGLISH Self - patient is the insured 9 [facility] [address] [place], [place] [phone] [id number] WILL ENGLISH Self - patient is the insured Medical (General) History Medical History History ICD Code Hx of colon cancer-10/2004-right colectom y by Dr. Gonzalez Colon polyps-tubular adenoma s-colonoscopy in December of 2011--this was negative for any recurrent polyps--it did reveal his known diverticulosis and internal hemorrhoids; colonoscopy in February of 2015-one small tubular adenoma removed HTN NIDDM Hyperlipidemia Denies [place],CVA,Lung disease,renal disease Diverticulitis in the left c [...]
== END 2025-06-01 08:21 | disposition home or self-care (01) ==
LOC: HO.HMGAL 08:21
PROVIDERS: PCP Internal Medicine; Visit Provider Registered Nurse Emergency
DX: J30.89 Other allergic rhinitis (principal)
CPT/HCPCS: 95117; 95165

== ENCOUNTER 2025-06-27 14:46 | Outpatient (AMB) | payer MEDICARE, BC, SELFPAY ==
--- OUTSIDE RECORDS SUMMARY | 2025-06-28 00:01 | XMS_ITS | Continuity of Care Document ---
Author Organization [place] - [facility], [facility] Address [address] [place] [address] Care Team Providers Care Table Games Dealer Name Role Phone PIO NEHA Primary Care Provider [phone] Assessment Encounter Date Assessment Date Assessment LastModified by Organization Details LastModified Time 04/12/2025 04/12/2025 The right tympanic membrane continues to show [...] for ear cleaning as he does rapidly accumulate cerumen. He will see Jimmy for the three month visit and follow-up with me in six months. [email or web address] Not available 04/12/2025 08:57:31 Plan of Treatment Reminders Order Date Submit Date Provider Last Modified By Organization Details Last Modified Time Details Appointments Establish ed 15 2025 08:45A M ABBEY WINTERS MD Not available Not available Not available Establish ed 15 2025 09:00A M JIMMY FIGUEROA PA-C Not available Not available Not available Lab None recorded. Referral None recorded. Procedures None recorded. Surgeries None recorded. Imaging None recorded. Medication Orders None recorded. Patient TargetsNo targets recorded. Patient InstructionsNo instructions recorded. Reason for Referral None Reported. Problems Name Problem SNOMED Code Status Onset Date Resolution Date Notes Provider Name and Address Organization Details Recorded Time Impacted cerumen in left ear [id number] 04441 Active 2016 Impacted cerumen, left ear; Note: Date Diagnose d: 7 4:32 PM (H61.22) Not Available [facility] 4 02:42:03 Mixed conducti ve and sensorin eural hearing loss, bilatera l 365966641 Active 2016 Mixed conducti ve and sensorin eural hearing loss, bilatera l; Note: Date Diagnose d: 7 4:16 PM (H90.6) Not Available [facility] 4 02:42:09 Bilatera l chronic serous otitis 846376831 Completed 201602/20/2024 Chronic serous otitis media, bilatera l; Note: Date Diagnose d: 05/08/20 17 8:59 AM (H65.23) Not Available [facility] 4 02:42:02 Mass of neck 941246406 Active 2016 Localize d swelling , mass and lump, neck; Note: Date Diagnose d: 06/04/20 17 10:03 AM (R22.1) Not Available [facility] 4 02:42:08 Neck swelling 170589270 Active 2016 Localize d swelling , mass and lump, neck; Note: Date Diagnose d: 06/04/20 17 10:03 AM (R22.1) Not Available [facility] 4 02:42:08 Chronic serous otitis media of left ear 575685239 Active 2017 Chronic serous otitis media, left ear; Note: Date Diagnose d: 8 9:03 AM (H65.22) Not Available [facility] 4 02:42:10 Impacted cerumen in right ear 98294568338 71095 Active 2017 Impacted cerumen, right ear; Note: Date Diagnose d: 8 8:52 AM (H61.21) Not Available [facility] 4 02:42:04 Mixed conducti ve and sensorin eural hearing loss of right ear 25998040918 105 Active 2020 Mixed conducti ve and sensorin eural hearing loss, unilater al, right ear with restrict ed hearing on the contrala teral side; Note: Date Diagnose d: 1 10:09 AM (H90.A31 ) Not Available [facility] 4 02:41:59 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 37399845775 109 Active 2020 Sensorin eural hearing loss, unilater al, left ear, with restrict ed hearing on the contrala teral side; Note: Date Diagnose d: 1 10:09 AM (H90.A22 ) Not Available [facility] 4 02:42:00 Chronic serous otitis media of right ear 356307738 Active 2020 Chronic serous otitis media, right ear; Note: Date Diagnose d: 08/22/2020 9:08 AM (H65.21) Not Available [facility] 4 02:42:10 Sensorin eural hearing loss of bilatera l ears 928846317 Active 2020 Sensorin eural hearing loss, bilatera l; Note: Date Diagnose d: 1 2:59 PM (H90.3) Not Available [facility] 4 02:42:06 Marginal perforat ion of tympanic membrane 97849370 Active 2021 Other marginal perforat ions of tympanic membrane , right ear; Note: Date Diagnose d: 2 8:54 AM (H72.2X1 ) Not Available [facility] 4 02:42:08 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 Other specifie d superfic ial mycoses; Note: Date Diagnose d: 2 9:04 AM (B36.8) Not Available [facility] 4 02:41:59 Otorrhea of left ear 04659071341 46557 Completed 202102/20/2024 Otorrhea , left ear; Note: Date Diagnose d: 2 9:04 AM (H92.12) Not Available [facility] 4 02:42:03 Impacted cerumen of bilatera l ears 04386552234 86353 Active 2023 ABBEY WINTERS MD [address] [facility] [place],[address], [place], [address] , [place] - [facility] 5 17:31:34 Bilatera l disorder of Eustachi an tubes 07517666797 85275 Active 2023 ABBEY WINTERS MD [address] [facility] [place],[address], [place], [address] , [place] - [facility] 5 17:31:34 Perforat ion of tympanic membrane 09628345 Active 2023 ABBEY WINTERS MD [address] [facility],[address] [facility], [place], [address] , [place] - [facility] 5 17:31:34 Problem Notes None recorded. Procedures Surgical History Date Name Laterality Status Provider Name and Address Organization Details Recorded Time 5 Cerumen removal without microscope bilat completed JIMMY FIGUEROA PA-C [address] [facility],[address], [address], [place] - [facility] 06/22/2025 12:09:55 5 Cerumen removal with microscope bilateral completed ABBEY WINTERS MD [address] [facility],[address], [address], [place] - [facility] 04/11/2025 17:31:33 5 Cerumen removal without microscope bilat completed JIMMY FIGUEROA PA-C [address] [facility],[address], [address], [place] - [facility] 01/05/2025 10:02:30 5 Cerumen removal with microscope bilateral completed ABBEY WINTERS MD [address] [facility],[address], [address], [place] - [facility] 10/06/2024 20:09:25 5 Cerumen removal without microscope bilat completed JIMMY FIGUEROA PA-C [address] [facility],[address], [address], [place] - [facility] 07/30/2024 09:19:48 4 Comp Audio with Tymps - 26475 & 73752 completed RICKI CAVAZOS [address] [facility],[address], [address], [facility] - [facility] 04/13/2024 08:41:06 4 Cerumen removal with microscope bilateral completed ABBEY WINTERS MD [address] [facility],[address], [address], [facility] - [facility] 04/13/2024 08:28:55 4 Cerumen removal without microscope bilat completed JIMMY FIGUEROA PA-C [address] [facility],[address], [address], [facility] - [facility] 01/27/2024 11:57:55 Imaging Results None recorded. Procedure Notes None recorded. Medical Equipment None Reported. Allergies No known drug allergies Medications Name Sig Start Date Stop Date Status Note LastModified by Organization Details LastModified Time celecoxib 200 mg capsule 08/02 completed Medicati on ID: [id number] D uration Value: 90 Brand Name: celecoxi b Send Method: E-Prescr ibed Sub s Allowed: subs OK Medic ationGen ericName : celecoxi b Not Available Not Available Not Available metformin 500 mg tablet 04/24 completed Medicati on ID: [id number] B rand Name: metformi n Send Method: E-Prescr ibed Sub s Allowed: subs OK Medic ationGen ericName : metformi n Not Available Not Available Not Available atorvasta tin 10 mg tablet active Not Available Not Available Not Available metformin 850 mg tablet 04/13 completed Not Available Not Available Not Available metronida zole 500 mg tablet 08/02 completed Medicati on ID: [id number] D uration Value: 7 Brand Name: metronid azole Se nd Method: E-Prescr ibed Sub s Allowed: subs OK Medic ationGen ericName : metronid azole Not Available Not Available Not Available Ciloxan 0.3 % eye drops 04/13 completed Medicati on ID: [id number] D uration Value: 14 Prescri bed By Name: Malgorzata Amezquita, GREEN MEAT GRADER-C Gloria nd Name: Ciloxan Send Method: E-Prescr ibed Sub s Allowed: subs OK Speci al Instruct ion: Instill 4 drops twice a day into the affected ear Medi cationGe nericNam e: Ciloxan Not Available Not Available Not Available ciproflox acin 500 mg tablet 11/05 completed Medicati on ID: [id number] D uration Value: 7 Brand Name: ciproflo xacin HCl Send Method: E-Prescr ibed Sub s Allowed: subs OK Medic ationGen ericName : ciproflo xacin HCl Not Available Not Available Not Available ofloxacin 0.3 % ear drops 4 drop 04/24 completed Medicati on ID: [id number] P rescribe d By Name: Quita Pinon nd Name: ofloxaci n Send Method: E-Prescr ibed Sub s Allowed: subs OK Medic ationGen ericName : ofloxaci n Not Available Not Available Not Available tamsulosi n 0.4 mg capsule 2021 active Medicati on ID: [id number] B rand Name: tamsulos in Send Method: E-Prescr ibed Sub s Allowed: subs OK Medic ationGen ericName : tamsulos in Not Available Not Available Not Available metformin 1,000 mg tablet active Not Available Not Available Not Available clotrimaz ole-betam ethasone 1 %-0.05 % topical cream Apply 1 a small amount twice a day 04/13 completed Medicati on ID: [id number] D uration Value: 14 Brand Name: clotrima zole-bet amethaso ne Send Method: E-Prescr ibed Sub s Allowed: subs OK Speci al Instruct ion: Apply with fingerti p to external ear TID X 2 week and as needed M truman nGeneric Name: clotrima zole-bet amethaso ne Not Available Not Available Not Available clotrimaz ole 1 % topical solution 08/06 completed Medicati on ID: [id number] D uration Value: 14 Prescri bed By Name: Quita Pinon nd Name: pedro murray Sen d Method: E-Prescr ibed Sub s Allowed: subs OK Speci al Instruct ion: 4 drops to affected ear three times a day X 14 days Med icationG enericNa me: clotripako murray Not Available Not Available Not Available hydrochlo rothiazid e 25 mg tablet active Not Available Not Available Not Available Aspir-81 mg tablet,de layed release 04/13 completed Medicati on ID: [id number] B rand Name: Aspir-81 Send Method: E-Prescr [...] as directed 04/13 completed Medicati on ID: [id number] D uration Value: 14 Brand Name: Ciprodex Send Method: E-Prescr ibed Sub s Allowed: subs OK Speci al Instruct ion: x 14 days Med icationG enericNa me: Ciprodex Not Available Not Available Not Available fish oil-dha-e pa 1,200 mg-144 mg-216 mg capsule 2016 active Medicati on ID: [id number] B rand Name: fish oil-dha- epa Send Method: E-Prescr ibed Sub s Allowed: subs OK Medic ationGen ericName : fish oil-dha- epa Not Available Not Available Not Available Gemtesa 75 mg tablet active Not Available Not Available Not Available Vitals Date Recorded Body height Body mass index (BMI) Body weight Provider Name and Address Organization Details Last Updated DateTime 04/12/2025 177.8 cm 30.8 kg/m2 90632.36 g Gillian Denis [place] - [facility] 04/12/2025 08:49:56 Social History None recorded. Functional Status None recorded. Mental Status None recorded. Family History Nothing Reported. Medical History Condition Response Diabetes Y Cancer Y Hypertension Y High Cholesterol Y Past Encounters Encounter ID Performer Location Encounter Start Date Encounter Closed Date Diagnosis/Indication Diagnosis SNOMED-CT Code Diagnosis ICD10 Code Diagnosis IMO Codes Diagnosis Note [id number] ABBEY WINTERS MD [facility] [address] [place] [address] 04/12/2025 08:24:21 04/12/2025 08:59:05 Bilateral disorder of Eustachian tubes 5482767704 141797 H69.93 Perforatio n of tympanic membrane 94659369 H72.01 Impacted c erumen of bilateral ears 7185500127 946110 H61.23 Health Concerns Section Related Observation LastModified by Organization Detai ls LastModified Time None Recorded Concern Status LastModified by Organization Details LastModified Time None Recorded Payers Encounter Date Sequence Insurance Name Policy Number Policy Marin Covered Member ID Marin Member ID Guarantor Name 04/12/2025 1 [place] [employer] Gregory Stanton Tameka [id number] Gregory English 04/12/2025 2 [place] [employer] [id number] Gregory Romy Tameka [id number] Gregory English Notes Date Note Type Note Provider Name and Address Organization Details Recorded Time 04/12/2025 text/html Pt presents for cerumen removal. History [...] months ago with Jimmy. ABBEY WINTERS MD [address] [address], [place], [address], [facility] - [facility] 04/12/2025 08:58:26
--- OUTSIDE RECORDS SUMMARY | 2025-06-28 00:01 | XMS_ITS | Data Portability ---
Author Organization [place] - [facility], Allergy Address [address] [place] [id number] Care Team Providers Care Assembler Type Bar And Segment Name Role Phone NEHA SUERO Primary Care Provider [phone] Assessment Encounter Date Assessment Date Assessment LastModified by Organization Details LastModified Time 07/30/2024 07/30/2024 78-year-old male presents for cerumen removal. Cerumen removed bilaterally. T-tube remains in place and patent on the left. Persistent perforation on the right which is dry. Continue dry ear precautions and follow-up in 6 months for cerumen. [email or web address] Not available 07/30/2024 09:20:21 10/07/2024 10/07/2024 The [...] Doc's Pro Plug for water exposure today. [email or web address] Not available 10/07/2024 09:00:29 01/05/2025 01/05/2025 79-year-old male with history of chronic ETD and left tube presents for cerumen removal. Cerumen removed bilaterally. Right TM normal to inspection with well aerated middle ear space. Left tube remains in place and patent. Continue observation and follow-up as scheduled. [email or web address] Not available 01/05/2025 10:03:11 04/12/2025 04/12/2025 The right tympanic membrane continues [...] and follow-up with me in six months. [email or web address] Not available 04/12/2025 08:57:31 06/22/2025 06/22/2025 79-year-old male presents for cerumen removal. Cerumen removed bilaterally. Right TM perforation stable and dry. Left tube in place and patent. Continue observation and follow-up in 6 months. Not available 06/22/2025 12:10:45 Plan of Treatment Reminders Order Date Submit [...] Recorded Time Impacted cerumen in left ear [id number] 75730 Active 2016 Impacted cerumen, left ear; Note: Date Diagnose d: 7 4:32 PM (H61.22) Not Available [facility] 4 02:42:03 Mixed conducti ve and sensorin eural hearing loss, bilatera l 888323678 Active 2016 Mixed conducti ve and sensorin eural hearing loss, bilatera l; Note: Date Diagnose d: 7 4:16 PM (H90.6) Not Available [facility] 4 02:42:09 Bilatera l chronic serous otitis 492551679 Completed 201602/20/2024 Chronic serous otitis media, bilatera l; Note: Date Diagnose d: 05/08/20 17 8:59 AM (H65.23) Not Available [facility] 4 02:42:02 Mass of neck 835537165 Active 2016 Localize d swelling , mass and lump, neck; Note: Date Diagnose d: 06/04/20 17 10:03 AM (R22.1) Not Available [facility] 4 02:42:08 Neck swelling 552208350 Active 2016 Localize d swelling , mass and lump, neck; Note: Date Diagnose d: 06/04/20 17 10:03 AM (R22.1) Not Available [facility] 4 02:42:08 Chronic serous otitis media of left ear 254894642 Active 2017 Chronic serous otitis media, left ear; Note: Date Diagnose d: 8 9:03 AM (H65.22) Not Available [facility] 4 02:42:10 Impacted cerumen in right ear 94642791675 44113 Active 2017 Impacted cerumen, right ear; Note: Date Diagnose d: 8 8:52 AM (H61.21) Not Available [facility] 4 02:42:04 Mixed conducti ve and sensorin eural hearing loss of right ear 92780838873 105 Active 2020 Mixed conducti ve and sensorin eural hearing loss, unilater al, right ear with restrict ed hearing on the contrala teral side; Note: Date Diagnose d: 1 10:09 AM (H90.A31 ) Not Available [facility] 4 02:41:59 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 82753485481 109 Active 2020 Sensorin eural hearing loss, unilater al, left ear, with restrict ed hearing on the contrala teral side; Note: Date Diagnose d: 1 10:09 AM (H90.A22 ) Not Available [facility] 4 02:42:00 Chronic serous otitis media of right ear 432895685 Active 2020 Chronic serous otitis media, right ear; Note: Date Diagnose d: 08/22/2020 9:08 AM (H65.21) Not Available [facility] 4 02:42:10 Sensorin eural hearing loss of bilatera l ears 606480991 Active 2020 Sensorin eural hearing loss, bilatera l; Note: Date Diagnose d: 1 2:59 PM (H90.3) Not Available [facility] 4 02:42:06 Marginal perforat ion of tympanic membrane 41199497 Active 2021 Other marginal perforat ions of tympanic membrane , right ear; Note: Date Diagnose d: 2 8:54 AM (H72.2X1 ) Not Available [facility] 4 02:42:08 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 Other specifie d superfic ial mycoses; Note: Date Diagnose d: 2 9:04 AM (B36.8) Not Available [facility] 4 02:41:59 Otorrhea of left ear 07301001833 62349 Completed 202102/20/2024 Otorrhea , left ear; Note: Date Diagnose d: 2 9:04 AM (H92.12) Not Available [facility] 4 02:42:03 Impacted cerumen of bilatera l ears 33621905440 65385 Active 2023 ABBEY WINTERS MD [address] [place] [address], [facility] [place], [address] , [facility] - [facility] 5 17:31:34 Bilatera l disorder of Eustachi an tubes 26522162870 13367 Active 2023 ABBEY WINTERS MD [address] [place] [address], [place], [address] , [place] - [facility] 5 17:31:34 Perforat ion of tympanic membrane 25856980 Active 2023 ABBEY WINTERS MD [address] [facility],[place] [address], [facility] [place], [address] , [place] - [facility] 5 17:31:34 Problem Notes None recorded. Procedures Surgical History Date Name Laterality Status Provider Name and Address Organization Details Recorded Time 5 Cerumen removal without microscope bilat completed JIMMY FIGUEROA PA-C [address] [facility],[address], [address], [place] - [facility] 06/22/2025 12:09:55 5 Cerumen removal with microscope bilateral completed ABBEY WINTERS MD [address] [facility],[address], [address], [place] - [facility] 04/11/2025 17:31:33 5 Cerumen removal without microscope bilat completed JIMMY FIGUEROA PA-C [address] [facility],[address], [address], [place] - [facility] 01/05/2025 10:02:30 5 Cerumen removal with microscope bilateral completed ABBEY WINTERS MD [address] [facility],[address], [address], [place] - [facility] 10/06/2024 20:09:25 5 Cerumen removal without microscope bilat completed JIMMY FIGUEROA PA-C [address] [facility],[address], [address], [place] - [facility] 07/30/2024 09:19:48 4 Comp Audio with Tymps - 01197 & 87292 completed RICKI CAVAZOS [address] [facility] [place],[address], [address], [place] - [facility] 04/13/2024 08:41:06 4 Cerumen removal with microscope bilateral completed ABBEY WINTERS MD [address] [facility],[address], [place], [address], [place] - [facility] 04/13/2024 08:28:55 4 Cerumen removal without microscope bilat completed JIMMY FIGUEROA PA-C [address], [place], [address], [place] - [facility] 01/27/2024 11:57:55 Imaging Results None recorded. Procedure Notes None recorded. Medical Equipment None Reported. Allergies No known drug allergies Medications Name Sig Start Date Stop Date Status Note LastModified by Organization Details LastModified Time celecoxib 200 mg capsule 08/02 completed Medicati on ID: [id number] D uration Value: 90 Brand Name: celecoxi b Send Method: E-Prescr ibed Sub s Allowed: subs [place] Medic ationGen ericName : celecoxi b Not Available Not Available Not Available metformin 500 mg tablet 04/24 completed Medicati on ID: [id number] B rand Name: metformi n Send Method: E-Prescr ibed Sub s Allowed: subs [place] Medic ationGen ericName : metformi n Not Available Not Available Not Available atorvasta tin 10 mg tablet active Not Available Not Available Not Available metformin 850 mg tablet 04/13 completed Not Available Not Available Not Available metronida zole 500 mg tablet 08/02 completed Medicati on ID: [id number] D uration Value: 7 Brand Name: metronid azole Se nd Method: E-Prescr ibed Sub s Allowed: subs [place] Medic ationGen ericName : metronid azole Not Available Not Available Not Available Ciloxan 0.3 % eye drops 04/13 completed Medicati on ID: [id number] D uration Value: 14 Prescri bed By Name: TUCKER Taylor nd Name: Ciloxan Send Method: E-Prescr ibed Sub s Allowed: subs [place] Speci al Instruct ion: Instill 4 drops twice a day into the affected ear Medi cationGe nericNam e: Ciloxan Not Available Not Available Not Available ciproflox acin 500 mg tablet 11/05 completed Medicati on ID: [id number] D uration Value: 7 Brand Name: ciproflo xacin HCl Send Method: E-Prescr ibed Sub s Allowed: subs [place] Medic ationGen ericName : ciproflo xacin HCl Not Available Not Available Not Available ofloxacin 0.3 % ear drops 4 drop 04/24 completed Medicati on ID: [id number] P rescribe d By Name: Quita Pinon nd Name: ofloxaci n Send Method: E-Prescr ibed Sub s Allowed: subs [place] Medic ationGen ericName : ofloxaci n Not Available Not Available Not Available tamsulosi n 0.4 mg capsule 2021 active Medicati on ID: [id number] B rand Name: tamsulos in Send Method: E-Prescr ibed Sub s Allowed: subs [place] Medic ationGen ericName : tamsulos in Not Available Not Available Not Available metformin 1,000 mg tablet active Not Available Not Available Not Available clotrimaz ole-betam ethasone 1 %-0.05 % topical cream Apply 1 a small amount twice a day 04/13 completed Medicati on ID: [id number] D uration Value: 14 Brand Name: clotrima zole-bet amethaso ne Send Method: E-Prescr ibed Sub s Allowed: subs [place] Speci al Instruct ion: Apply with fingerti p to external ear TID X 2 week and as needed M edicatio nGeneric Name: clotrima zole-bet amethaso ne Not Available Not Available Not Available clotrimaz ole 1 % topical solution 08/06 completed Medicati on ID: [id number] D uration Value: 14 Prescri bed By Name: Quita Pinon nd Name: clotrima zole Sen d Method: E-Prescr ibed Sub s Allowed: subs [place] Speci al Instruct ion: 4 drops to affected ear three times a day X 14 days Med icationG enericNa me: clotrima zole Not Available Not Available Not Available hydrochlo rothiazid e 25 mg tablet active Not Available Not Available Not Available Aspir-81 mg tablet,de layed release 04/13 completed Medicati on ID: [id number] B rand Name: Aspir-81 Send Method: E-Prescr [...] as directed 04/13 completed Medicati on ID: [id number] D uration Value: 14 Brand Name: Ciprodex Send Method: E-Prescr ibed Sub s Allowed: subs [place] Speci al Instruct ion: x 14 days Med icationG enericNa me: Ciprodex Not Available Not Available Not Available fish oil-dha-e pa 1,200 mg-144 mg-216 mg capsule 2016 active Medicati on ID: [id number] B rand Name: fish oil-dha- epa Send [...] Updated DateTime 07/30/2024 177.8 cm 30.8 kg/m2 50673.36 g Gillian Denis [place] - [facility] 07/30/2024 08:50:05 Date Recorded Body height Body weight Provider Name and Address Organization Details Last Updated DateTime 10/07/2024 177.8 cm 95797.36 g Adina Zepeda [place] - [facility] 10/07/2024 08:38:13 Date Recorded Body height Body mass index (BMI) Body weight Provider Name and Address Organization Details Last Updated DateTime 01/05/2025 177.8 cm 30.8 kg/m2 60024.36 g Gillian Denis [place] - [facility] 01/05/2025 09:36:20 Date Recorded Body height Body mass index (BMI) Body weight Provider Name and Address Organization Details Last Updated DateTime 04/12/2025 177.8 cm 30.8 kg/m2 72847.36 g Gillian Denis [place] - [facility] 04/12/2025 08:49:56 Date Recorded Body height Body mass index (BMI) Body weight Provider Name and Address Organization Details Last Updated DateTime 06/22/2025 177.8 cm 30.8 kg/m2 25830.36 g Gillian Denis [facility] 06/22/2025 09:28:12 Social History None recorded. Functional Status None recorded. Mental Status None recorded. Family History Nothing Reported. Medical History Condition Response Diabetes Y Cancer Y Hypertension Y High Cholesterol Y Past Encounters Encounter ID Performer Location Encounter Start Date Encounter Closed Date Diagnosis/Indication Diagnosis SNOMED-CT Code Diagnosis ICD10 Code Diagnosis IMO Codes Diagnosis Note [id number] JIMMY FIGUEROA PA-C [facility] [address] [address] 01/27/2024 11:00:59 01/27/2024 11:26:38 Perforation of tympanic membrane 61961514 H72.01 Impacted c erumen of bilateral ears 5765108564 570616 H61.23 Bilateral disorder of Eustachian tubes 7820016284 747627 H69.93 [id number] ABBEY WINTERS MD [facility] [address] [address] 04/13/2024 08:11:43 04/13/2024 09:02:17 Bilateral disorder of Eustachian tubes 9477505619 094762 H69.93 Perforatio n of tympanic membrane 38816700 H72.01 Impacted c erumen of bilateral ears 9253866188 227545 H61.23 Sensorineu ral hearing loss of bilateral ears 715274614 H90.3 Audiologic al evaluation results:Ri ght ear:Mild to moderately -severe sensorineu ral hearing loss with excellent word recognitio n. Conductive componenet at 4kHz only.Left ear:Normal sloping to moderately -severe sensorineu ral hearing loss with excellent word recognitio n.Tympanom etry:Right Ear:Type ALeft Ear:Type Ad [id number] RICKI CAVAZOS [facility] [address] [address] 04/13/2024 08:40:31 04/14/2024 07:37:33 Sensorineural hearing loss of bilateral ears 038241607 H90.3 Audiologic al evaluation results:Ri ght ear:Mild to moderately -severe sensorineu ral hearing loss with excellent word recognitio n. Conductive componenet at 4kHz only.Left ear:Normal sloping to moderately -severe sensorineu ral hearing loss with excellent word recognitio n.Tympanom etry:Right Ear:Type ALeft Ear:Type Ad [id number] JIMMY FIGUEROA PA-C [facility] [address] [address] 07/30/2024 08:34:03 07/30/2024 09:15:39 Bilateral disorder of Eustachian tubes 5068714953 656468 H69.93 Impacted c erumen of bilateral ears 2287400537 970476 H61.23 [id number] ABBEY WINTERS MD [facility] [address] [address] 10/07/2024 08:33:42 10/07/2024 09:10:46 Bilateral disorder of Eustachian tubes 8689429050 924451 H69.93 Perforatio n of tympanic membrane 31771967 H72.01 Impacted c erumen of bilateral ears 1085047509 193828 H61.23 [id number] JIMMY FIGUEROA PA-C [facility] [address] [address] 01/05/2025 09:00:31 01/05/2025 09:59:48 Bilateral disorder of Eustachian tubes 1272077950 948919 H69.93 Impacted c erumen of bilateral ears 7758033695 527848 H61.23 [id number] ABBEY WINTERS MD [facility] [address] [address] 04/12/2025 08:24:21 04/12/2025 08:59:05 Bilateral disorder of Eustachian tubes 0010465983 844677 H69.93 Perforatio n of tympanic membrane 22402385 H72.01 Impacted c erumen of bilateral ears 1334822665 408955 H61.23 [id number] JIMMY FIGUEROA PA-C [facility] [address] [address] 06/22/2025 09:09:34 06/22/2025 09:39:23 Impacted cerumen of bilateral ears 6166694690 068786 H61.23 Bilateral disorder of Eustachian tubes 0599159324 903620 H69.93 Marginal p erforation of tympanic membrane 90062720 H72.2X1 Health Concerns Section Related Observation LastModified by Organization Detai ls LastModified Time None Recorded Concern Status LastModified by Organization Details LastModified Time None Recorded Advance Directives Directive None Recorded Payers Insurance Date Sequence Insurance Name Policy Number Policy [place] Covered Member ID [place] Member ID Guarantor Name 06/22/2025 1 MEDICARE [place]: [employer] Gregory English [id number] Gregory English 06/22/2025 2 [place]: [employer] 111 Gregory English [id number] Gregory English Notes Date Note Type Note Provider Name and Address Organization Details Recorded Time 07/30/2024 text/html ROS as noted in the HPI 78-year-old male presents for cerumen removal. No acute issues since his last visit. History of chronic right TM perforation following T-tube. DEVENDRA WOOD MD [address] [place] [address], [address], [facility] - [facility] 07/30/2024 13:01:11 10/07/2024 text/html Pt presents for [...] months ago with Jimmy. ABBEY WINTERS MD [address] [place] [address], [place], [address], [place] - [facility] 10/07/2024 09:00:53 01/05/2025 text/html ROS as noted in the [facility] 79-year-old male presents for cerumen removal. History of eustachian tube dysfunction currently with a left tube. Has had no acute infections or changes in hearing. JHOAN SWENSON MD [address] [facility],[address], [address], [facility] - [facility] 01/05/2025 17:17:01 04/12/2025 text/html Pt presents for cerumen removal. [...] ago with Jimmy. ABBEY WINTERS MD [address] [facility],[address], [address], [place] - [facility] 04/12/2025 08:58:26 06/22/2025 text/html ROS as noted in the [facility] 79-year-old male presents for cerumen removal. No acute issues since his last visit. 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 Jhoan Helton DO [address] [facility],[place] [address], [place], [address], [place] - [facility] 06/22/2025 12:32:33
--- OUTSIDE RECORDS SUMMARY | 2025-06-28 00:02 | XMS_ITS ---
Concern Status LastModified by Organization Details LastModified Time None Recorded Payers Encounter Date Sequence Insurance Name Policy Number Policy [place] Covered Member ID Marin Member ID Guarantor Name 06/22/2025 1 [place] [employer] Gregory English [id number] Gregory English 06/22/2025 2 [place] 111 Gregory English [id number] Gregory English Notes Date Note Type Note Provider Name and Address Organization Details Recorded Time 06/22/2025 text/html ROS as noted in the HPI 79-year-old male presents for cerumen removal. No acute issues since his last visit. 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 Jhoan Helton, [address], [address], [place] - [facility] 06/22/2025 12:32:33 Continuity of Care Document Created on: June 28, 2025 [email or web address] [id number] : 1945 Sex: Male Author Organization [place] - [facility], [facility] Address [address] [place] [id number] Care Team Providers Care Hand Candy Molder Name Role Phone NEHA SUERO Primary Care Provider Assessment Encounter Date Assessment Date Assessment LastModified by Organization Details LastModified Time 06/22/2025 06/22/2025 79-year-old male presents for cerumen removal. Cerumen removed bilaterally. Right TM perforation stable and dry. Left tube in place and patent. Continue observation and follow-up in 6 months. [email or web address] Not available 06/22/2025 12:10:45 Plan of Treatment Reminders Order Date Submit Date Provider Last Modified By Organization Details Last Modified Time Details Appointments Establish ed 15 2025 08:45A Dian WINTERS MD Not available Not available Not [...] Recorded Time Impacted cerumen in left ear [id number] 80966 Active 2016 Impacted cerumen, left ear; Note: Date Diagnose d: 7 4:32 PM (H61.22) Not Available [facility] 4 02:42:03 Mixed conducti ve and sensorin eural hearing loss, bilatera l 847800147 Active 2016 Mixed conducti ve and sensorin eural hearing loss, bilatera l; Note: Date Diagnose d: 7 4:16 PM (H90.6) Not Available [facility] 4 02:42:09 Bilatera l chronic serous otitis 428686739 Completed 201602/20/2024 Chronic serous otitis media, bilatera l; Note: Date Diagnose d: 05/08/20 17 8:59 AM (H65.23) Not Available [facility] 4 02:42:02 Mass of neck 343493615 Active 2016 Localize d swelling , mass and lump, neck; Note: Date Diagnose d: 06/04/20 17 10:03 AM (R22.1) Not Available [facility] 4 02:42:08 Neck swelling 194700179 Active 2016 Localize d swelling , mass and lump, neck; Note: Date Diagnose d: 06/04/20 17 10:03 AM (R22.1) Not Available [facility] 4 02:42:08 Chronic serous otitis media of left ear 913169029 Active 2017 Chronic serous otitis media, left ear; Note: Date Diagnose d: 8 9:03 AM (H65.22) Not Available [facility] 4 02:42:10 Impacted cerumen in right ear 05535057246 95773 Active 2017 Impacted cerumen, right ear; Note: Date Diagnose d: 8 8:52 AM (H61.21) Not Available [facility] 4 02:42:04 Mixed conducti ve and sensorin eural hearing loss of right ear 42699181086 105 Active 2020 Mixed conducti ve and sensorin eural hearing loss, unilater al, right ear with restrict ed hearing on the contrala teral side; Note: Date Diagnose d: 1 10:09 AM (H90.A31 ) Not Available [facility] 4 02:41:59 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 16987764769 109 Active 2020 Sensorin eural hearing loss, unilater al, left ear, with restrict ed hearing on the contrala teral side; Note: Date Diagnose d: 1 10:09 AM (H90.A22 ) Not Available [facility] 4 02:42:00 Chronic serous otitis media of right ear 646860244 Active 2020 Chronic serous otitis media, right ear; Note: Date Diagnose d: 08/22/2020 9:08 AM (H65.21) Not Available [facility] 4 02:42:10 Sensorin eural hearing loss of bilatera l ears 689626250 Active 2020 Sensorin eural hearing loss, bilatera l; Note: Date Diagnose d: 1 2:59 PM (H90.3) Not Available [facility] 4 02:42:06 Marginal perforat ion of tympanic membrane 70953108 Active 2021 Other marginal perforat ions of tympanic membrane , right ear; Note: Date Diagnose d: 2 8:54 AM (H72.2X1 ) Not Available [facility] 4 02:42:08 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 Other specifie d superfic ial mycoses; Note: Date Diagnose d: 2 9:04 AM (B36.8) Not Available [facility] 4 02:41:59 Otorrhea of left ear 12514479046 39586 Completed 202102/20/2024 Otorrhea , left ear; Note: Date Diagnose d: 2 9:04 AM (H92.12) Not Available [facility] 4 02:42:03 Impacted cerumen of bilatera l ears 17151203705 03051 Active 2023 ABBEY WINTERS MD [address] [facility], [place], [address] , [place] - [facility] 5 17:31:34 Bilatera l disorder of Eustachi an tubes 42589829229 Active 2023 ABBEY WINTERS MD [address] [facility], [place], [address] , [place] [facility] 5 17:31:34 Perforat ion of tympanic membrane 17641429 Active 2023 ABBEY WINTERS MD [address] [facility] [address] [place],[address] [facility], [place], [place], [address] , [place] - [facility] 17:31:34 Problem Notes None recorded. Procedures Surgical History Date Name Laterality Status Provider Name and Address Organization Details Recorded Time 5 Cerumen removal without microscope bilat completed JIMMY FIGUEROA PA-C [address] [facility],[address] [facility], [place], [address], [place] - [facility] 06/22/2025 12:09:55 5 Cerumen removal with microscope bilateral completed ABBEY WINTERS MD [address] [facility] [facility], [place], [address], [place] [facility] 04/11/2025 17:31:33 5 Cerumen removal without microscope bilat completed JIMMY FIGUEROA PA-C [address] [facility] [facility], [place], [address], [place] [facility] 01/05/2025 10:02:30 5 Cerumen removal with microscope bilateral completed ABBEY WINTERS MD [address] [facility],[address], [address], [facility] - [facility] 10/06/2024 20:09:25 5 Cerumen removal without microscope bilat completed JIMMY FIGUEROA PA-C [address] [facility],[address], [address], [facility] - [facility] 07/30/2024 09:19:48 4 Comp Audio with Tymps - 92177 & 36073 completed RICKI CAVAZOS [address] [facility],[place] [address], [place], [address], [facility] - [facility] 04/13/2024 08:41:06 4 Cerumen removal with microscope bilateral completed ABBEY WINTERS MD [address] [facility],[address], [address], [facility] - [facility] 04/13/2024 08:28:55 4 Cerumen removal without microscope bilat completed JIMMY FIGUEROA PA-C [address] [facility],[address], [address], [facility] - [facility] 01/27/2024 11:57:55 Imaging Results None recorded. Procedure Notes None recorded. Medical Equipment None Reported. Allergies No known drug allergies Medications Name Sig Start Date Stop Date Status Note LastModified by Organization Details LastModified Time celecoxib 200 mg capsule 08/02 completed Medicati on ID: [id number] D uration Value: 90 Brand Name: celecoxi b Send Method: E-Prescr ibed Sub s Allowed: subs OK Medic ationGen ericName : celecoxi b Not Available Not Available Not Available metformin 500 mg tablet 04/24 completed Medicati on ID: [id number] B rand Name: metformi n Send Method: E-Prescr ibed Sub s Allowed: subs OK Medic ationGen ericName : metformi n Not Available Not Available Not Available atorvasta tin 10 mg tablet active Not Available Not Available Not Available metformin 850 mg tablet 04/13 completed Not Available Not Available Not Available metronida zole 500 mg tablet 08/02 completed Medicati on ID: [id number] D uration Value: 7 Brand Name: metronid azole Se nd Method: E-Prescr ibed Sub s Allowed: subs OK Medic ationGen ericName : metronid azole Not Available Not Available Not Available Ciloxan 0.3 % eye drops 04/13 completed Medicati on ID: [id number] D uration Value: 14 Prescri bed By Name: TUCKER Taylor nd Name: Ciloxan Send Method: E-Prescr ibed Sub s Allowed: subs OK Speci al Instruct ion: Instill 4 drops twice a day into the affected ear Medi cationGe nericNam e: Ciloxan Not Available Not Available Not Available ciproflox acin 500 mg tablet 11/05 completed Medicati on ID: [id number] D uration Value: 7 Brand Name: ciproflo xacin HCl Send Method: E-Prescr ibed Sub s Allowed: subs OK Medic ationGen ericName : ciproflo xacin HCl Not Available Not Available Not Available ofloxacin 0.3 % ear drops 4 drop 04/24 completed Medicati on ID: [id number] Amanuel [place] By Name: Quita Pinon nd Name: ofloxaci n Send Method: E-Prescr ibed Sub s Allowed: subs OK Medic ationGen ericName : ofloxaci n Not Available Not Available Not Available tamsulosi n 0.4 mg capsule 2021 active Medicati on ID: [id number] B rand Name: tamsulos in Send Method: E-Prescr ibed Sub s Allowed: subs OK Medic ationGen ericName : tamsulos in Not Available Not Available Not Available metformin 1,000 mg tablet active Not Available Not Available Not Available clotrimaz ole-betam ethasone 1 %-0.05 % topical cream Apply 1 a small amount twice a day 04/13 completed Medicati on ID: [id number] D uration Value: 14 Brand Name: clotrima zole-bet amethaso ne Send Method: E-Prescr ibed Sub s Allowed: subs OK Speci al Instruct ion: Apply with fingerti p to external ear TID X 2 week and as needed M truman Power Name: pedro murraymelissa saul ne Not Available Not Available Not Available clotrimaz ole 1 % topical solution 08/06 completed Medicati on ID: [id number] D uration Value: 14 Prescri bed By Name: Quita Pinno nd Name: pedro murray Sen d Method: E-Prescr ibed Sub s Allowed: subs OK Speci al Instruct ion: 4 drops to affected ear three times a day X 14 days Med icationG enericNa me: pedro murray Not Available Not Available Not Available hydrochlo rothiazid e 25 mg tablet active Not Available Not Available Not Available Aspir-81 mg tablet,de layed release 04/13 completed Medicati on ID: [id number] B rand Name: Aspir-81 Send Method: E-Prescr [...] as directed 04/13 completed Medicati on ID: [id number] D uration Value: 14 Brand Name: Ciprodex Send Method: E-Prescr ibed Sub s Allowed: subs OK Speci al Instruct ion: x 14 days Med icationG enericNa me: Ciprodex Not Available Not Available Not Available fish oil-dha-e pa 1,200 mg-144 mg-216 mg capsule 2016 active Medicati on ID: [id number] B rand Name: fish oil-dha- epa Send [...] Updated DateTime 06/22/2025 177.8 cm 30.8 kg/m2 64002.36 g Gillian Denis [place] - [facility] 06/22/2025 09:28:12 Social History None recorded. Functional Status None recorded. Mental Status None recorded. Family History Nothing Reported. Medical History Condition Response Diabetes Y Cancer Y High Cholesterol Y Hypertension Y Past Encounters Encounter ID Performer Location Encounter Start Date Encounter Closed Date Diagnosis/Indication Diagnosis SNOMED-CT Code Diagnosis ICD10 Code Diagnosis IMO Codes Diagnosis Note [id number] JIMMY FIGUEROA PA-C [facility] [address] [address] 06/22/2025 09:09:34 06/22/2025 09:39:23 Impacted cerumen of bilateral ears [id number] 130436 H61.23 Bilateral disorder of Eustachian tubes 9838821635 422969 H69.93 Marginal p erforation of tympanic membrane 43637056 H72.2X1 Health Concerns Section Related Observation LastModified by Organization Matthias engle LastModified Time None Recorded
== END 2025-06-27 14:47 | disposition home or self-care (01) ==
LOC: HO.HMGAL 14:46
PROVIDERS: PCP Internal Medicine; Visit Provider Registered Nurse Emergency
DX: J30.89 Other allergic rhinitis (principal)
CPT/HCPCS: 95117; 95165

== ENCOUNTER 2025-06-28 09:21 | Outpatient (AMB) | payer MEDICARE, BC, SELFPAY ==
--- NOTE | 2025-06-28 09:28 | MHC.OFFVIS ---
Vital Signs 06/28/25 09:33 Height 5 ft 9 in Weight 212 lb BMI 31.3 BP 138/63 Blood Pressure Location Lt brachial Position Sitting Pulse 80 Intake Visit Reasons: yearly malignant neoplasm of the colon Intake Note: Patient is seen in office for yearly visit, following malignant neoplasm of ascending colon. 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 English returns for follow-up colon cancer examination. He previously underwent laparoscopic right colectomy [address] Gonzalez. 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 status post right colectomy laparoscopic on 10/24/2004.? His last colonoscopy performed by Dr. Murphy on 11/16/2021 revealed to benign polyps 1 just distal to the anastomosis and a 2nd in the transverse colon. Repeat colonoscopy in 3 years was recommended. He denies any current abdominal pain, nausea, vomiting, fever, chills, diarrhea, or rectal bleeding. His most recent CEA performed [facility] on 06/20/2025 was normal at 1.83 ng/mL (reference range 0-5 ng/mL). He did report some abdominal pain in the left lower quadrant several days ago with no palpable mass, nausea, vomiting, constipation or diarrhea. This resolved after taking ibuprofen for several days. He currently has no abdominal pain. [facility] Medical History Diabetes Colon cancer BPH (benign prostatic hyperplasia) Hypercholesterolemia Hypertension Surgical History History of placement of ear tubes History of colonoscopy History of colectomy History of transurethral resection of prostate History of excision of pilonidal cyst Family History Father History of leukemia Mother History of emphysema Social History Are you a primary home care rn to a significant other at home: No Do you presently have visiting nurse or other home services: No Alcohol intake: never Patient Tobacco Use Status: Never used Tobacco Current occupational status: retired Current occupation: rt handed Review of Systems Const All systems reviewed & are unremarkable except as noted in HPI and below Denies chills, Denies fever(s), Denies headache(s) and Denies poor appetite ENT Denies dizziness and Denies headache(s) Card Denies chest pain, Denies rapid heart rate, Denies palpitations and Denies slow heart rate Resp Denies chest congestion, Denies cough, Denies pain on inspiration and Denies wheezing GI Denies abdominal pain, Denies bloating, Denies change in stool character, Denies constipation, Denies diarrhea, Denies nausea, Denies vomiting and Denies hematemesis Musc Denies back pain, Denies arthralgias, Denies joint swelling and Denies numbness Skin/Breast Denies change in pigmentation, Denies erythema and Denies rash Neuro Denies dizziness, Denies headache(s) and Denies numbness Psych Denies anxiety and Denies depression Endo Denies palpitations Chriss/Lymph Denies easy bleeding, Denies easy bruising and Denies lymphadenopathy Aller/Immun Denies wheezing Physical Exam Vital Signs: Last Vital Signs Pulse 80 06/28/25 09:33 BP 138/63 06/28/25 09:33 BMI result Body Mass Index 31.3 Const General: healthy appearing and well developed Nutritional Appearance: well nourished Orientation/consciousness: patient oriented x3 Limitations: no limitations HEENT Head: Yes normocephalic and Yes atraumatic Ears: hearing grossly normal bilaterally Resp Effort & Inspection: normal respiratory effort, no audible wheezes, no cough and no respiratory distress GI Inspection: Yes normal to inspection, No Abdominal wall edema, No distended and Yes incision (Clean and intact, no palpable mass) Palpation (GI): Soft to palpation, nontender, no guarding, not rigid, No hepatosplenomegaly present and no hernias Percussion: Yes normal to percussion Auscultation: normal bowel sounds Rectal Exam - Male: Yes deferred Skin General skin exam: no rashes or lesions noted Neuro General: patient oriented x3 Extrem General: Yes no clubbing, cyanosis or edema Assessment & Plan Assessment & Plan (1) Colon cancer: Comment: Dr. Gonzalez: Laparoscopic right colectomy 10/24/2004 Code(s): C18.9 - Malignant neoplasm of colon, unspecified Category: Medical Qualifiers: Colon location: ascending Qualified Code(s): C18.2 - Malignant neoplasm of ascending colon Plan: Gregory returns for follow-up examination after right colon surgery 20 years ago. He continues to do well and has no evidence of recurrence disease. His abdomen is soft and nondistended with no palpable mass. He underwent colonoscopy in this year with Dr. Murphy with no further polyps. He will possibly undergo a repeat colonoscopy in 3 years. CEA Levels remain normal. He will return in one year for follow-up examination, sooner p.r.n.. Coding Level of Care Code Est Pt Level 3 (36805) Diagnoses Malignant neoplasm of ascending colon C18.2 Colon location: ascending
[2025-06-28 09:33] VITALS: BP 138/63; PULSE 80; BMI 31.3
== END 2025-06-28 09:46 | disposition home or self-care (01) ==
LOC: HO.HGS 09:21
PROVIDERS: PCP Internal Medicine; Visit Provider Surgery
DX: C18.2 Malignant neoplasm of ascending colon (principal)
CPT/HCPCS: 99213

== ENCOUNTER → 2025-06-28 09:21 | Outpatient (BNVA) | payer MEDICARE, BC, SELFPAY | PROVIDERS: PCP Internal Medicine; Visit Provider Surgery | DX: C18.2 Malignant neoplasm of ascending colon (principal); Z90.49 Acquired absence of other specified parts of digestive tract | CPT/HCPCS: 99212 ==